=== PATIENT | female | born 1935 | race Caucasian/White ===

== ENCOUNTER 2023-10-11 12:10 | Emergency (ER) | payer MEDICARE, OTHER, SELFPAY ==
[2023-10-11 12:31] VITALS: BP 114/74
[2023-10-11 12:46] VITALS: BP 127/55
[2023-10-11] MEDS: MORPHINE SULFATE 2 MG IV (13:35)
[2023-10-11] MEDS: TYLENOL 650 MG PO (13:35)
[2023-10-11 14:00] VITALS: BP 122/53
[2023-10-11 14:01] LABS: % Basophils 0.3 % (0-2); % Immature Granulocytes 1.2 % (0-0.5); % Lymphocytes 4.9 % (20.5-51.1); % Neutrophils 86.6 % (42.2-75.2); Absolute Immature Granulocytes 0.1 10^3/uL (0-0.05); Absolute Lymphocytes 0.5 10^3/uL (1.2-3.4); Absolute Monocytes 0.8 10^3/uL (0.1-0.6); Absolute Neutrophils 9.3 10^3/uL (1.4-6.5); Hematocrit 29.7 % (37.0-47.0); Hemoglobin 10.5 g/dL (12.0-16.0); Mean Corp Hgb Conc. 35.4 g/dL (33.0-37.0); Mean Corpuscular Hgb 31.9 pg (27.0-31.0); Mean Corpuscular Volume 90.3 fL (81.0-99.0); Mean Platelet Volume 11.2 fL (7.4-10.4); Nucleated Red Blood Cells % 0 %; Platelet Count 142 10^3/uL (130-400); Red Blood Cell Count 3.29 10^6/uL (4.20-5.40); Red Cell Dist. Width 13.5 % (11.5-14.5); White Blood Cell Count 10.7 10^3/uL (4.8-10.8)
[2023-10-11 14:12] LABS: COVID-19 Antigen Negative (Negative)
[2023-10-11 14:13] LABS: INR 1.01; PT 13.5 Sec (11.4-14.6)
[2023-10-11 14:14] LABS: APTT 23.5 Sec (23.4-35.0)
[2023-10-11 14:15] LABS: ALT (SGPT) 24 U/L (0-35); AST (SGOT) 30 U/L (14-36); Albumin 4.1 g/dl (3.5-5.0); Alkaline Phosphatase 65 U/L (38-126); Blood Urea Nitrogen 25 mg/dl (7-17); Calcium 8.5 mg/dl (8.4-10.2); Carbon Dioxide 26 mmol/L (22-30); Chloride 100 mmol/L (98-107); Creatine Phosphokinase 103 U/L (30-135); Glucose 124 mg/dl (70-99); Potassium 4.1 mmol/L (3.5-5.1); Sodium 130 mmol/L (135-145); Total Bilirubin 0.7 mg/dl (0.2-1.3); Total Protein 6.6 g/dl (6.3-8.2); eGFR > 60.00
[2023-10-11 14:24] LABS: Troponin I < 0.012 ng/ml
[2023-10-11 15:00] VITALS: BP 118/48
--- NOTE | 2023-10-11 15:23 | ED.GENMED ---
History of Present Illness
<Fawn Jimenez PA-C - Last Filed: 10/13/23 07:57>
General
Chief Complaint: Fall
Source: patient
Exam Limitations: none
Time Seen by Provider: 10/11/23 12:35
Nursing documentation reviewed up to this point in time: agreed with
Travel History
Have you had any contact with someone who has COVID-19?: No
Do you have any symptoms of coronavirus? Fever > 100 degrees, chills, cough, shortness of breath, sore throat, loss of taste or smell, muscle aches, or headache?: No
History of Present Illness
History of Present Illness:
pt is a 88 y/o F with h/o htn, hld, asthma, tachycardia previously
here with fall today when she was trying to get back into her high bed
pt says she has an antique bed and uses a step stool to get up into the bed. she happened to get down out of bed and then felt lightheaded so she walked around to the step stool and then just tripped she thinks and fell and hit her right cheek on a
marble countertop and then fell onto her chest/abdomen
she has pain in her right cheek, sternum with deep breathing an dabdomen
she had chills last night but was unaware she had a fever
no cough, cold sypmtoms, uti sxs, vomiting, diarrhea.
no thinners
does recall hitting her head
knows she didn't pass out
was on the ground for about 1 hour before daughter came in to help her up.
has pain with deep breathing.
Past History
<Fawn Jimenez PA-C - Last Filed: 10/13/23 07:57>
Past History
ED Past Medical History: HTN, Hypercholesterolemia and Hypothyroidism
Social History
Tobacco: Non-smoker
Alcohol: None
Drug: None
Personal:
Living: with family
Review of Systems
<Fawn Jimenez PA-C - Last Filed: 10/13/23 07:57>
Review of Systems
Allergies reviewed?: Yes
All Other Systems: Not applicable
Phy Exam
<Fawn Jimenez PA-C - Last Filed: 10/13/23 07:57>
Physical Exam
Physical Exam:
GENERAL: Alert , in no apparent distress
HEAD: NCAT
FACE: right cheek contusion/bruisin approx 3 cm
able to open jaw normally
NECK: no midline tenderness, active ROM intact, no paraspinal muscle tenderness;
EYE: pupils equal and reactive, EOMs intact.
ENT: o/p clr, mmm. no hemotympanum
CARDIAC: Regular rate and rhythm, no edema
chest wall: sternal tenderness
LUNGS: Clear breath sounds bilaterally, no acute respiratory distress, no wheezes/rales/rhonchi
ABDOMEN: Soft, without focal tenderness, no r/g, no cvat
+eccyhmosis upper abdomen
NEUROLOGICAL: Alert and oriented, no focal neuro deficits, CN intact, 5/5 strength, sensation intact
SKIN: Warm and dry,
MUSCULOSKELETAL: No edema, well perfused.
PSYCH: Normal and appropriate interaction.
Course
<Fawn Jimenez PA-C - Last Filed: 10/13/23 07:57>
Orders/Labs/Results
Orders:
Orders
10/11/23 13:18
Electrocardiogram (*1) Urgent
Reason for Study: Other
Other Reason for Exam: trauma
CT Chest/abd/pel W Iv Cont Urgent
Reason For Exam: sternal pain from fall
CT Facial Bones W/o Iv Contras Urgent
Comment:
Reason For Exam: right maxillary pain from fall
CT Head W/o Iv Contrast Urgent
Comment:
Reason For Exam: fall hit head
Cardiac Monitoring- Treatment ONCE
EKG- Treatment ONCE
Morphine Sulfate 2 mg IV NOW STA
10/11/23 13:19
CT Cervical Spine W/o Iv Contr Urgent
Comment:
Reason For Exam: fall
10/11/23 13:22
Acetaminophen [Tylenol] 650 mg PO NOW STA
10/11/23 13:30
COVID-19 Antigen Urgent
Source: Nasal Swab
CPK [Creatine Phosphokinase] Urgent
Complete Blood Count/With Diff Urgent
Comprehensive Metabolic Panel Urgent
PTT Urgent
Prothrombin Time Urgent
Troponin I Urgent
Influenza A+B Rapid Molecular Urgent
SARAHI Source: Nasal Swab
Specimen Description:
10/11/23 17:03
Urinalysis Reflex To Culture Urgent
Date Specimen was Collected: 10/11/23
Time Specimen was Collected: 15:19
Abnormal Lab Results
10/11/23
13:30
RBC 3.29 L 10^6/uL
(4.20-5.40)
Hgb 10.5 L g/dL
(12.0-16.0)
Hct 29.7 L %
(37.0-47.0)
MCH 31.9 H pg
(27.0-31.0)
MPV 11.2 H fL
(7.4-10.4)
Abs Immat Gran (auto) 0.1 H 10^3/uL
(0-0.05)
Absolute Neuts (auto) 9.3 H 10^3/uL
(1.4-6.5)
Absolute Lymphs (auto) 0.5 L 10^3/uL
(1.2-3.4)
Absolute Monos (auto) 0.8 H 10^3/uL
(0.1-0.6)
Immature Gran % 1.2 H %
(0-0.5)
Neutrophils % 86.6 H %
(42.2-75.2)
Lymphocytes % 4.9 L %
(20.5-51.1)
Sodium 130 L mmol/L
(135-145)
BUN 25 H mg/dl
(7-17)
Glucose 124 H mg/dl
(70-99)
10/11/23 13:30
10/11/23 13:30
Vital Signs
Temp: 98.1 F
Initial and Last Documented VS:
Initial Vital Signs
Temp Pulse Resp BP Pulse Ox
100.4 F H 70 16 114/74 98
10/11/23 12:31 10/11/23 12:31 10/11/23 12:31 10/11/23 12:31 10/11/23 12:31
Last Documented Vital Signs
Temp Pulse Resp BP Pulse Ox
98.1 F 57 11 118/51 94
10/11/23 16:37 10/11/23 18:32 10/11/23 18:32 10/11/23 18:31 10/11/23 18:32
<Jim Richardson PA-C - Last Filed: 10/11/23 21:00>
Orders/Labs/Results
Orders:
Orders
10/11/23 13:18
Electrocardiogram (*1) Urgent
Reason for Study: Other
Other Reason for Exam: trauma
CT Chest/abd/pel W Iv Cont Urgent
Reason For Exam: sternal pain from fall
CT Facial Bones W/o Iv Contras Urgent
Comment:
Reason For Exam: right maxillary pain from fall
CT Head W/o Iv Contrast Urgent
Comment:
Reason For Exam: fall hit head
Cardiac Monitoring- Treatment ONCE
EKG- Treatment ONCE
Morphine Sulfate 2 mg IV NOW STA
10/11/23 13:19
CT Cervical Spine W/o Iv Contr Urgent
Comment:
Reason For Exam: fall
10/11/23 13:22
Acetaminophen [Tylenol] 650 mg PO NOW STA
10/11/23 13:30
COVID-19 Antigen Urgent
Source: Nasal Swab
CPK [Creatine Phosphokinase] Urgent
Complete Blood Count/With Diff Urgent
Comprehensive Metabolic Panel Urgent
PTT Urgent
Prothrombin Time Urgent
Troponin I Urgent
Influenza A+B Rapid Molecular Urgent
SARAHI Source: Nasal Swab
Specimen Description:
10/11/23 17:03
Urinalysis Reflex To Culture Urgent
Date Specimen was Collected: 10/11/23
Time Specimen was Collected: 15:19
Abnormal Lab Results
10/11/23
13:30
RBC 3.29 L 10^6/uL
(4.20-5.40)
Hgb 10.5 L g/dL
(12.0-16.0)
Hct 29.7 L %
(37.0-47.0)
MCH 31.9 H pg
(27.0-31.0)
MPV 11.2 H fL
(7.4-10.4)
Abs Immat Gran (auto) 0.1 H 10^3/uL
(0-0.05)
Absolute Neuts (auto) 9.3 H 10^3/uL
(1.4-6.5)
Absolute Lymphs (auto) 0.5 L 10^3/uL
(1.2-3.4)
Absolute Monos (auto) 0.8 H 10^3/uL
(0.1-0.6)
Immature Gran % 1.2 H %
(0-0.5)
Neutrophils % 86.6 H %
(42.2-75.2)
Lymphocytes % 4.9 L %
(20.5-51.1)
Sodium 130 L mmol/L
(135-145)
BUN 25 H mg/dl
(7-17)
Glucose 124 H mg/dl
(70-99)
10/11/23 13:30
10/11/23 13:30
Vital Signs
Initial and Last Documented VS:
Initial Vital Signs
Temp Pulse Resp BP Pulse Ox
100.4 F H 70 16 114/74 98
10/11/23 12:31 10/11/23 12:31 10/11/23 12:31 10/11/23 12:31 10/11/23 12:31
Last Documented Vital Signs
Temp Pulse Resp BP Pulse Ox
98.1 F 57 11 118/51 94
10/11/23 16:37 10/11/23 18:32 10/11/23 18:32 10/11/23 18:31 10/11/23 18:32
<Fawn Jimenez PA-C - Last Filed: 10/13/23 07:57>
MDM/Problems Addressed
Differential Diagnosis Includes:
facial fracture, head injury, sternal fracture, dehydration, uti, flu, covid
MDM/Problems Addressed:
88 y/o F with h/o chronic balance issues
says she was trying to get into her bed and thinks she missed the stool and fell hitting her face, head, and chest
she was on the ground 1 hour before being able to get up by her daughter's help
has facial contusion, headache, sternal pain with deep breathing and abd wall bruising
vitals stable but low grade temp
pt had chills last night
no midline neck tenderness
mild sternal tenderness and abd wall tendneress with bruising, right facial ecchymosis but no trismus
trauma w/u neg for fractures/injuries
ekg trop neg
no source for fever identified;
ua pending
if neg, d/c
<Jim Richardson PA-C - Last Filed: 10/11/23 21:00>
*Critical Care Note
Total Time (30-74mins, 75-104mins- exclusive of procedures): Not Applicable
<Jim Richardson PA-C - Last Filed: 10/11/23 21:00>
Update Note
Update Note:
Assumed care of patient from Eula Jimenez PA-C pending urinalysis. Urinalysis is bland, discharged in stable condition
ED Attending Note
<Fawn Jimenez PA-C - Last Filed: 10/13/23 07:57>
-
Portions of this chart may have been created with voice recognition software.� Occasional wrong word or��sound alike� substitutions may have occurred due to the inherent limitations of voice recognition software.
Discharge Plan
Departure
Patient Disposition: Home (Routine Discharge)
Date of Disposition: 10/11/23
Time of Disposition: 18:24
Patient with high blood pressure during this ER visit?: No
Condition: Fair
Discharge Problem:
Fever, Fall, Contusion of face, Abdominal contusion
Instructions: Contusion (DC), Preventing falls in adults
Prescriptions:
No Action
ketoconazole 2 % Shampoo
1 applic TOPICAL .2-3 TIMES PER WEEK
polyethylene glycol 3350 [Miralax] 17 gram Powder In Packet
17 g PO DAILY PRN (Reason: constipation)
atenolol 25 mg Tablet
12.5 mg PO HS
clobetasol 0.05 % Cream
1 applic TOPICAL DIRECTED
Patient Comments:
10/11/2023, pt. states that she applies this medication once a day in the morning for a week and then switches to applying Tacrolimus 0.1% ointment for a week and then swtiches back to this med. and repeats.
cyanocobalamin (vitamin B-12) 1,000 mcg Tablet
1,000 mcg PO DAILY
pentoxifylline 400 mg Tablet Extended Release
400 mg PO DAILY
levothyroxine 75 mcg Tablet
75 mcg PO DAILY
tacrolimus 0.1 % Ointment
1 applic TOPICAL DIRECTED
Patient Comments:
10/11/2023, pt. states that she applies this medication once a day in the morning for a week and then switches to applying Clobetasol 0.05% cream for a week and then swtiches back to this med. and repeats.
nystatin 100,000 unit/gram Cream
1 applic TOPICAL BID
montelukast 10 mg Tablet
10 mg PO HS
magnesium 250 mg Tablet
250 mg PO DAILY
paroxetine HCl 40 mg Tablet
60 mg PO HS
fluticasone propionate 110 mcg/actuation Hfa Aerosol Inhaler
1 puff INHALATION R DAILY
rosuvastatin 5 mg Tablet
5 mg PO HS
Systane (PF) 0.4-0.3 % Dropperette
1 drp BOTH EYES BID
cholecalciferol (vitamin D3) 25 mcg (1,000 unit) Tablet
25 mcg PO DAILY
melatonin 5 mg Tablet
5 mg PO HS
Prebiotic + Probiotic
1 cap PO DAILY
apple cider vinegar
1 tbsp PO NOON
Referrals:
Chantal Sr MD [Family Provider] - Follow up in 2-3 days
Activity Restrictions/Additional Instructions:
YOU HAD NO SIGN OF TRAUMATIC INJURIES FROM YOUR FALL
YOU HAD A SLIGHT FEVER
TAKE TYELNOL EVERY 6 HOURS FOR PAIN/FEVER.
REST, APPLY ICE TO YOUR INJURIES
RETURN FOR ANY COCNERNS
Interventions
Interventions:
*Risk Screen - Suicide Last Done: 10/11/23 13:07
*General Assessment Last Done: 10/11/23 13:07
*Neglect/Abuse Screening Last Done: 10/11/23 13:07
ED- Fall Risk Assessment Last Done: 10/11/23 13:08
*ED COVID-19 Vaccine History Last Done: 10/11/23 13:07
*Nursing Disposition Last Done: 10/11/23 18:58
ED-Musculoskeletal Assessment Last Done: 10/11/23 13:08
ED- Neurological Assessment Last Done: 10/11/23 13:08
ED-Skin Assessment Last Done: 10/11/23 13:08
Discharge Date and Time
Discharge Date/Time: 10/11/23 18:58
[2023-10-11 16:25] VITALS: BP 120/51
[2023-10-11 18:12] LABS: Urine Albumin Negative (Neg - Trace); Urine Bilirubin Negative (Negative); Urine Character Clear (Clear); Urine Color Yellow; Urine Glucose Negative (Negative); Urine Ketone Negative (Negative); Urine Leukocyte Negative (Negative); Urine Nitrite Negative (Negative); Urine Occult Blood Negative (Negative); Urine Urobilinogen Negative (Neg - 1+); Urine pH 6.5 (5.0-9.0)
[2023-10-11 18:31] VITALS: BP 118/51
== END 2023-10-11 18:58 | disposition home or self-care (01) ==
LOC: EMR 12:10
PROVIDERS: Physician Assistant; EMERGENCY PHYSICIAN Emergency Medicine; FAMILY PHYSICIAN Family Medicine
DX: S00.83XA Contusion of other part of head, initial encounter (principal); S30.1XXA Contusion of abdominal wall, initial encounter; R50.9 Fever, unspecified; R07.81 Pleurodynia; W01.190A Fall on same level from slipping, tripping and stumbling with subsequent striking against furniture, initial encounter; Z11.52 Encounter for screening for COVID-19; I10 Essential (primary) hypertension; E78.00 Pure hypercholesterolemia, unspecified; E03.9 Hypothyroidism, unspecified; J45.909 Unspecified asthma, uncomplicated; Z88.6 Allergy status to analgesic agent; Z88.5 Allergy status to narcotic agent; Z88.0 Allergy status to penicillin; Z91.048 Other nonmedicinal substance allergy status
CPT/HCPCS: 99285; 96374; 70450; 70486; 71260; 72125; 74177; 80053; 81003; 82550; 84484; 85025; 85610; 85730; 87502; 87811; 93005; Q9967

== ENCOUNTER → 2023-10-21 14:01 | Outpatient (REF) | payer MEDICARE, OTHER, SELFPAY | LOC: PAVMRI 14:01 | PROVIDERS: ATTENDING PHYSICIAN Surgery Vascular Surgery | DX: I73.9 Peripheral vascular disease, unspecified (principal) | CPT/HCPCS: 72198; 73725; 74185; A9585 ==

== ENCOUNTER → 2023-11-01 08:34 | Outpatient (REF) | payer MEDICARE, OTHER, SELFPAY ==
[2023-11-01 09:11] LABS: % Basophils 0.7 % (0-2); % Eosinophils 1.8 % (0-6); % Immature Granulocytes 0.2 % (0-0.5); % Lymphocytes 41.5 % (20.5-51.1); % Monocytes 12.4 % (1.7-9.3); % Neutrophils 43.4 % (42.2-75.2); Absolute Eosinophils 0.1 10^3/uL (0-0.7); Absolute Lymphocytes 1.8 10^3/uL (1.2-3.4); Absolute Monocytes 0.5 10^3/uL (0.1-0.6); Absolute Neutrophils 1.9 10^3/uL (1.4-6.5); Hematocrit 32.3 % (37.0-47.0); Hemoglobin 10.7 g/dL (12.0-16.0); Mean Corp Hgb Conc. 33.1 g/dL (33.0-37.0); Mean Corpuscular Hgb 31.3 pg (27.0-31.0); Mean Corpuscular Volume 94.4 fL (81.0-99.0); Mean Platelet Volume 10.7 fL (7.4-10.4); Nucleated Red Blood Cells % 0 %; Platelet Count 234 10^3/uL (130-400); Red Blood Cell Count 3.42 10^6/uL (4.20-5.40); Red Cell Dist. Width 13.7 % (11.5-14.5); White Blood Cell Count 4.3 10^3/uL (4.8-10.8)
[2023-11-01 09:38] LABS: ALT (SGPT) 20 U/L (0-35); AST (SGOT) 27 U/L (14-36); Albumin 3.8 g/dl (3.5-5.0); Alkaline Phosphatase 77 U/L (38-126); Blood Urea Nitrogen 30 mg/dl (7-17); Calcium 9.3 mg/dl (8.4-10.2); Carbon Dioxide 27 mmol/L (22-30); Chloride 103 mmol/L (98-107); Glucose 119 mg/dl (70-99); HDL Cholesterol 64 mg/dl; LDL Cholesterol, Calculated 59 mg/dl; Potassium 4.4 mmol/L (3.5-5.1); Sodium 140 mmol/L (135-145); Total Bilirubin 0.5 mg/dl (0.2-1.3); Total Cholesterol 138 mg/dl (50-199); Total Protein 6.6 g/dl (6.3-8.2); Triglyceride 75 mg/dl (10-149); Very Low Density Lipoprotein 15 mg/dl (0-30); eGFR 48.94
[2023-11-01 09:49] LABS: Vitamin D, 25-OH*** 43.6 ng/mL (30-80)
[2023-11-01 10:02] LABS: TSH Reflex To Free T4 1.53 uIU/ml (0.47-4.68)
[2023-11-01 10:22] LABS: Vitamin B12 822 pg/ml (239-931)
[2023-11-01 11:38] LABS: Glycohemoglobin (HgbA1c) 6.3 % (4.0-5.6)
== END ==
LOC: REG 08:34
PROVIDERS: ATTENDING PHYSICIAN Family Medicine
DX: R73.03 Prediabetes (principal); E78.00 Pure hypercholesterolemia, unspecified; E03.9 Hypothyroidism, unspecified; E53.8 Deficiency of other specified B group vitamins; D53.8 Other specified nutritional anemias; Z79.899 Other long term (current) drug therapy; E11.9 Type 2 diabetes mellitus without complications; E55.9 Vitamin D deficiency, unspecified
CPT/HCPCS: 36415; 80053; 80061; 82306; 82607; 83036; 84443; 85025

== ENCOUNTER → 2023-12-27 12:46 | Outpatient (REF) | payer MEDICARE, OTHER, SELFPAY | LOC: RAD 12:46 | PROVIDERS: ATTENDING PHYSICIAN Nurse Practitioner Family; FAMILY PHYSICIAN Family Medicine | DX: R91.1 Solitary pulmonary nodule (principal) | CPT/HCPCS: 71250 ==

== ENCOUNTER → 2023-12-28 12:48 | Outpatient (REF) | payer MEDICARE, OTHER, SELFPAY ==
[2023-12-28 13:32] LABS: Hemoglobin 11.5 g/dL (12.0-16.0); Mean Corp Hgb Conc. 34.8 g/dL (33.0-37.0); Mean Corpuscular Hgb 31.9 pg (27.0-31.0); Mean Corpuscular Volume 91.7 fL (81.0-99.0); Mean Platelet Volume 10.8 fL (7.4-10.4); Platelet Count 178 10^3/uL (130-400); Red Cell Dist. Width 13.5 % (11.5-14.5); White Blood Cell Count 5.4 10^3/uL (4.8-10.8)
[2023-12-28 13:45] LABS: INR 0.97; PT 12.9 Sec (11.4-14.6)
[2023-12-28 13:46] LABS: APTT 29.3 Sec (23.4-35.0)
[2023-12-28 14:20] LABS: Blood Urea Nitrogen 32 mg/dl (7-17); Calcium 9.6 mg/dl (8.4-10.2); Carbon Dioxide 26 mmol/L (22-30); Glucose 99 mg/dl (70-99); eGFR 48.94
[2023-12-28 14:45] LABS: Chloride 101 mmol/L (98-107); Potassium 4.4 mmol/L (3.5-5.1); Sodium 138 mmol/L (135-145)
== END ==
LOC: SDSPAT 12:48
PROVIDERS: ATTENDING PHYSICIAN Internal Medicine Critical Care Medicine; FAMILY PHYSICIAN Family Medicine
DX: R91.1 Solitary pulmonary nodule (principal); Z01.812 Encounter for preprocedural laboratory examination
CPT/HCPCS: 85027; 36415; 80048; 85610; 85730

== ENCOUNTER 2024-01-11 06:12 | Day surgery (SDC) | payer MEDICARE, OTHER, SELFPAY ==
[2024-01-11] VITALS (11 sets, daily range): BP systolic 127–183; BP diastolic 56–77; BMI 26.3
[2024-01-11 07:02] LABS: Glucose - Point of Care 115 mg/dl (70-99)
== END 2024-01-11 12:28 | disposition home or self-care (01) ==
LOC: GI 06:12
PROVIDERS: ATTENDING PHYSICIAN Internal Medicine Critical Care Medicine
DX: J98.4 Other disorders of lung (principal); R91.1 Solitary pulmonary nodule
CPT/HCPCS: 31629; 31627; 31623; 31624; 31654; 31899; 88172; 88173; 88305; 88312; 71045; 76000; 82962; 87015; 87070; 87102; 87116; 87205; 88112; 88333; 88334; 94640; C1887

== ENCOUNTER 2024-03-26 16:49 | Emergency (ER) | payer MEDICARE, OTHER, SELFPAY ==
[2024-03-26 17:04] VITALS: BP 152/74
[2024-03-26 17:25] LABS: % Basophils 0.6 % (0-2); % Eosinophils 2.7 % (0-6); % Immature Granulocytes 0.2 % (0-0.5); % Lymphocytes 28.5 % (20.5-51.1); % Monocytes 11.2 % (1.7-9.3); % Neutrophils 56.8 % (42.2-75.2); Absolute Eosinophils 0.2 10^3/uL (0-0.7); Absolute Lymphocytes 1.9 10^3/uL (1.2-3.4); Absolute Monocytes 0.7 10^3/uL (0.1-0.6); Absolute Neutrophils 3.8 10^3/uL (1.4-6.5); Hematocrit 28.9 % (37.0-47.0); Mean Corp Hgb Conc. 34.6 g/dL (33.0-37.0); Mean Corpuscular Hgb 31.8 pg (27.0-31.0); Mean Platelet Volume 10.6 fL (7.4-10.4); Nucleated Red Blood Cells % 0 %; Platelet Count 210 10^3/uL (130-400); Red Blood Cell Count 3.14 10^6/uL (4.20-5.40); Red Cell Dist. Width 13.9 % (11.5-14.5); White Blood Cell Count 6.6 10^3/uL (4.8-10.8)
[2024-03-26 17:48] LABS: ALT (SGPT) 20 U/L (0-35); AST (SGOT) 32 U/L (14-36); Albumin 4.1 g/dl (3.5-5.0); Alkaline Phosphatase 74 U/L (38-126); Blood Urea Nitrogen 24 mg/dl (7-17); Calcium 9.3 mg/dl (8.4-10.2); Carbon Dioxide 26 mmol/L (22-30); Chloride 103 mmol/L (98-107); Glucose 132 mg/dl (70-99); Potassium 4.9 mmol/L (3.5-5.1); Sodium 137 mmol/L (135-145); Total Bilirubin 0.4 mg/dl (0.2-1.3); Total Protein 6.8 g/dl (6.3-8.2); eGFR > 60.00
--- NOTE | 2024-03-26 19:19 | ED.GENMED ---
History of Present Illness
General
Chief Complaint: Skin Problem
Source: patient
Time Seen by Provider: 03/26/24 19:01
History of Present Illness
History of Present Illness:
89-year-old female reports to the emergency room complaining of pain, redness right leg. 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 Patient has been developing wounds in this leg due to to the
radiation. These wounds have been treated by Dr. Tubbs, the dermatology. He is using 'stem cell injections' to promote healing. Patient has been treated with 'sulfa' for infections of this leg several times over the past few months. Because of
pain and redness she was seen on Tuesday by a partner of Dr. Tubbs. He felt that at that time there is no acute infection. Today she went to the office for her stem cell treatment and a pustule was noted and lanced. She was referred to the
emergency room for further evaluation of possible deep space infection in the calf because she has been having a significant amount of pain in her calf in particular. The location of the wound that was last was on the anterior lateral tibia.
Past History
Past History
ED Past Medical History: HTN, Hypercholesterolemia and Hypothyroidism
Social History
Tobacco: Non-smoker
Alcohol: None
Drug: None
Personal:
Living: with family
Phy Exam
Physical Exam
Physical Exam:
General: Awake, Alert, Oriented X3. No acute distress.
Vitals: unremarkable
Head: Atraumatic
Eyes: Pupils equal, EOMI
Throat: Airway intact, no exudates
Neck: Trachea midline
Lungs: Clear and equal b/l
Heart: Regular rate, no murmurs
Abd: Soft, Nontender, No pulsatile mass
Neuro: Nonfocal
Skin: Warm, dry, no rash
Extremities: pulses equal b/l, right lower extremity shows erythema existing from the upper calf down to the lower calf extending anteriorly to the middle third of the tibia. There is a healed wound in the upper part of the lower leg and a more
open wound with a pustule noted which was evidently I&D.
Course
Orders/Labs/Results
Orders:
Orders
03/26/24 17:14
Complete Blood Count/With Diff Urgent
Comprehensive Metabolic Panel Urgent
03/26/24 19:19
US Periph Venous LOWER Ext RT Urgent
Comment:
Reason For Exam: pain, swelling, eval for dvt or abscess
03/26/24 21:40
Sulfamethox./Trimethoprim Ds [Bactrim Ds 800 mg/160 mg] 1 tablet PO NOW STA
03/26/24 21:43
Acetaminophen [Tylenol] 1,000 mg PO NOW STA
Abnormal Lab Results
03/26/24
17:14
RBC 3.14 L 10^6/uL
(4.20-5.40)
Hgb 10.0 L g/dL
(12.0-16.0)
Hct 28.9 L %
(37.0-47.0)
MCH 31.8 H pg
(27.0-31.0)
MPV 10.6 H fL
(7.4-10.4)
Absolute Monos (auto) 0.7 H 10^3/uL
(0.1-0.6)
Monocytes % 11.2 H %
(1.7-9.3)
BUN 24 H mg/dl
(7-17)
Glucose 132 H mg/dl
(70-99)
03/26/24 17:14
03/26/24 17:14
Vital Signs
Initial and Last Documented VS:
Initial Vital Signs
Temp Pulse Resp BP Pulse Ox
98.0 F 74 16 152/74 98
03/26/24 17:04 03/26/24 17:04 03/26/24 17:04 03/26/24 17:04 03/26/24 17:04
Last Documented Vital Signs
Temp Pulse Resp BP Pulse Ox
97.8 F 78 18 158/88 97
03/26/24 21:57 03/26/24 21:57 03/26/24 21:57 03/26/24 21:57 03/26/24 21:57
MDM/Problems Addressed
Differential Diagnosis Includes:
DVT, abscess, myositis
MDM/Problems Addressed:
Ultrasound was obtained which shows no DVT. There is a subcutaneous abscess noted. I discussed these findings with Dr. Tubbs who knows the patient well and is managing her chronic wounds. He recommended starting patient on Bactrim. He knows
the patient well and did perform a small I&D. He believes this should be sufficient and he will follow-up with the patient on to make sure she is getting better. I am reticent to perform more extensive hide given her severe wound healing
issues.
*Radiology
Radiology exam reviewed: radiology read reviewed
*Pulse Oximetry
Patient hypoxic: no
*Critical Care Note
Total Time (30-74mins, 75-104mins- exclusive of procedures): Not Applicable
Patient Management
Social determinants of health affecting care: Substance abuse
ED Attending Note
-
Portions of this chart may have been created with voice recognition software.� Occasional wrong word or��sound alike� substitutions may have occurred due to the inherent limitations of voice recognition software.
Discharge Plan
Departure
Patient Disposition: Home (Routine Discharge)
Date of Disposition: 03/26/24
Time of Disposition: 21:40
Patient with high blood pressure during this ER visit?: Yes
Condition: Good
Discharge Problem:
Subcutaneous abscess
Instructions: BLOOD PRESSURE, Skin Abscess
Prescriptions:
New
sulfamethoxazole-trimethoprim [Bactrim DS] 800-160 mg tablet
1 tab PO BID Qty: 20 0RF
No Action
ketoconazole 2 % Shampoo
1 applic TOPICAL .2-3 TIMES PER WEEK
polyethylene glycol 3350 [Miralax] 17 gram Powder In Packet
17 g PO DAILY PRN (Reason: constipation)
atenolol 25 mg Tablet
12.5 mg PO HS
clobetasol 0.05 % Cream
1 applic TOPICAL DIRECTED PRN (Reason: apply to right leg)
Patient Comments:
10/11/2023, pt. states that she applies this medication once a day in the morning for a week and then switches to applying Tacrolimus 0.1% ointment for a week and then swtiches back to this med. and repeats.
cyanocobalamin (vitamin B-12) 1,000 mcg Tablet
1,000 mcg PO DAILY
pentoxifylline 400 mg Tablet Extended Release
400 mg PO DAILY
levothyroxine 75 mcg Tablet
75 mcg PO DAILY
tacrolimus 0.1 % Ointment
1 applic TOPICAL DIRECTED PRN (Reason: apply to right leg)
Patient Comments:
10/11/2023, pt. states that she applies this medication once a day in the morning for a week and then switches to applying Clobetasol 0.05% cream for a week and then swtiches back to this med. and repeats.
nystatin 100,000 unit/gram Cream
1 applic TOPICAL BID PRN (Reason: rash)
montelukast 10 mg Tablet
10 mg PO HS
magnesium 250 mg Tablet
250 mg PO DAILY
paroxetine HCl 40 mg Tablet
60 mg PO HS
fluticasone propionate 110 mcg/actuation Hfa Aerosol Inhaler
1 puff INHALATION R DAILY
rosuvastatin 5 mg Tablet
5 mg PO DAILY
Systane (PF) 0.4-0.3 % Dropperette
1 drp BOTH EYES BID PRN (Reason: dry eyes)
cholecalciferol (vitamin D3) 25 mcg (1,000 unit) Tablet
25 mcg PO DAILY
melatonin 5 mg Tablet
5 mg PO HS
Prebiotic + Probiotic
1 cap PO DAILY
apple cider vinegar
1 tbsp PO NOON
Referrals:
Marcello Tubbs MD [Consulting Staff] -
Activity Restrictions/Additional Instructions:
Return to the ER if you develop fever, redness spreads rapidly. Follow up with Dr. Tubbs
Interventions
Interventions:
*Risk Screen - Suicide Last Done: 03/26/24 19:50
*General Assessment Last Done: 03/26/24 19:50
*Neglect/Abuse Screening Last Done: 03/26/24 19:50
ED- Fall Risk Assessment Last Done: 03/26/24 19:50
*Nursing Disposition Last Done: 03/26/24 21:58
ED-Skin Assessment Last Done: 03/26/24 19:50
Discharge Date and Time
Discharge Date/Time: 03/26/24 21:59
Print Language: UPPER SORBIAN
[2024-03-26 20:09] VITALS: BP 169/89
[2024-03-26] MEDS: BACTRIM DS 800 MG/160 MG 1 TABLET PO (21:43)
[2024-03-26] MEDS: TYLENOL 1000 MG PO (21:44)
[2024-03-26 21:57] VITALS: BP 158/88
== END 2024-03-26 21:59 | disposition home or self-care (01) ==
LOC: EMR 16:49
PROVIDERS: Emergency Medicine; EMERGENCY PHYSICIAN Emergency Medicine; FAMILY PHYSICIAN Family Medicine
DX: L02.415 Cutaneous abscess of right lower limb (principal); M79.604 Pain in right leg; I10 Essential (primary) hypertension; E78.00 Pure hypercholesterolemia, unspecified; E03.9 Hypothyroidism, unspecified; Z85.830 Personal history of malignant neoplasm of bone; Z92.3 Personal history of irradiation; Z88.6 Allergy status to analgesic agent; Z88.5 Allergy status to narcotic agent; Z88.0 Allergy status to penicillin; Z91.048 Other nonmedicinal substance allergy status
CPT/HCPCS: 99284; 80053; 85025; 93971

== ENCOUNTER → 2024-05-02 09:44 | Outpatient (REF) | payer MEDICARE, OTHER, SELFPAY ==
[2024-05-02 10:54] LABS: % Basophils 1.2 % (0-2); % Eosinophils 3.6 % (0-6); % Immature Granulocytes 0.4 % (0-0.5); % Lymphocytes 31.2 % (20.5-51.1); % Monocytes 10.5 % (1.7-9.3); % Neutrophils 53.1 % (42.2-75.2); Absolute Basophils 0.1 10^3/uL (0-0.2); Absolute Eosinophils 0.2 10^3/uL (0-0.7); Absolute Lymphocytes 1.6 10^3/uL (1.2-3.4); Absolute Monocytes 0.5 10^3/uL (0.1-0.6); Absolute Neutrophils 2.7 10^3/uL (1.4-6.5); Hematocrit 30.7 % (37.0-47.0); Hemoglobin 10.3 g/dL (12.0-16.0); Mean Corp Hgb Conc. 33.6 g/dL (33.0-37.0); Mean Corpuscular Hgb 30.7 pg (27.0-31.0); Mean Corpuscular Volume 91.4 fL (81.0-99.0); Mean Platelet Volume 10.9 fL (7.4-10.4); Nucleated Red Blood Cells % 0 %; Platelet Count 219 10^3/uL (130-400); Red Blood Cell Count 3.36 10^6/uL (4.20-5.40); Red Cell Dist. Width 14.1 % (11.5-14.5); White Blood Cell Count 5.1 10^3/uL (4.8-10.8)
[2024-05-02 11:46] LABS: ALT (SGPT) 22 U/L (0-35); AST (SGOT) 31 U/L (14-36); Albumin 4.3 g/dl (3.5-5.0); Alkaline Phosphatase 75 U/L (38-126); Blood Urea Nitrogen 29 mg/dl (7-17); Calcium 9.5 mg/dl (8.4-10.2); Carbon Dioxide 29 mmol/L (22-30); Chloride 106 mmol/L (98-107); Glucose 110 mg/dl (70-99); HDL Cholesterol 75 mg/dl; LDL Cholesterol, Calculated 78 mg/dl; Potassium 4.9 mmol/L (3.5-5.1); Sodium 140 mmol/L (135-145); Total Bilirubin 0.5 mg/dl (0.2-1.3); Total Cholesterol 167 mg/dl (50-199); Triglyceride 70 mg/dl (10-149); Very Low Density Lipoprotein 14 mg/dl (0-30); eGFR 48.63
[2024-05-02 12:18] LABS: TSH 3.05 uIU/ml (0.47-4.68)
[2024-05-02 12:25] LABS: Glycohemoglobin (HgbA1c) 5.8 % (4.0-5.6)
== END ==
LOC: REG 09:44
PROVIDERS: ATTENDING PHYSICIAN Family Medicine
DX: E78.00 Pure hypercholesterolemia, unspecified (principal); D63.8 Anemia in other chronic diseases classified elsewhere; E03.9 Hypothyroidism, unspecified; R73.01 Impaired fasting glucose
CPT/HCPCS: 36415; 80053; 80061; 83036; 84443; 85025

== ENCOUNTER → 2024-06-12 14:26 | Outpatient (REF) | payer MEDICARE, OTHER, SELFPAY | LOC: RAD 14:26 | PROVIDERS: ATTENDING PHYSICIAN Internal Medicine Critical Care Medicine; FAMILY PHYSICIAN Family Medicine | DX: R91.1 Solitary pulmonary nodule (principal) | CPT/HCPCS: 71250 ==

== ENCOUNTER → 2024-10-02 08:28 | Outpatient (REF) | payer MEDICARE, OTHER, SELFPAY ==
[2024-10-02 10:09] LABS: % Basophils 1.1 % (0-2); % Eosinophils 2.2 % (0-6); % Immature Granulocytes 0.4 % (0-0.5); % Lymphocytes 33.3 % (20.5-51.1); % Monocytes 9.9 % (1.7-9.3); % Neutrophils 53.1 % (42.2-75.2); Absolute Basophils 0.1 10^3/uL (0-0.2); Absolute Eosinophils 0.1 10^3/uL (0-0.7); Absolute Lymphocytes 1.8 10^3/uL (1.2-3.4); Absolute Monocytes 0.5 10^3/uL (0.1-0.6); Absolute Neutrophils 2.9 10^3/uL (1.4-6.5); Hematocrit 33.6 % (37.0-47.0); Hemoglobin 11.4 g/dL (12.0-16.0); Mean Corp Hgb Conc. 33.9 g/dL (33.0-37.0); Mean Corpuscular Hgb 30.5 pg (27.0-31.0); Mean Corpuscular Volume 89.8 fL (81.0-99.0); Mean Platelet Volume 11.1 fL (7.4-10.4); Nucleated Red Blood Cells % 0 %; Platelet Count 203 10^3/uL (130-400); Red Blood Cell Count 3.74 10^6/uL (4.20-5.40); Red Cell Dist. Width 13.9 % (11.5-14.5); White Blood Cell Count 5.4 10^3/uL (4.8-10.8)
[2024-10-02 10:46] LABS: ALT (SGPT) 21 U/L (0-35); AST (SGOT) 27 U/L (14-36); Albumin 4.4 g/dl (3.5-5.0); Alkaline Phosphatase 67 U/L (38-126); Blood Urea Nitrogen 28 mg/dl (7-17); Carbon Dioxide 28 mmol/L (22-30); Chloride 103 mmol/L (98-107); Glucose 108 mg/dl (70-99); HDL Cholesterol 68 mg/dl; Iron 106 ug/dl (37-170); LDL Cholesterol, Calculated 81 mg/dl; Potassium 4.7 mmol/L (3.5-5.1); Sodium 140 mmol/L (135-145); Total Bilirubin 0.4 mg/dl (0.2-1.3); Total Cholesterol 170 mg/dl (50-199); Total Protein 7.1 g/dl (6.3-8.2); Triglyceride 105 mg/dl (10-149); Very Low Density Lipoprotein 21 mg/dl (0-30); eGFR 54.53
[2024-10-02 11:16] LABS: TSH 5.43 uIU/ml (0.47-4.68)
== END ==
LOC: REG 08:28
PROVIDERS: ATTENDING PHYSICIAN Family Medicine
DX: E78.00 Pure hypercholesterolemia, unspecified (principal); E03.9 Hypothyroidism, unspecified; D63.8 Anemia in other chronic diseases classified elsewhere
CPT/HCPCS: 36415; 80053; 80061; 82728; 83540; 84443; 85025

== ENCOUNTER → 2024-11-14 13:52 | Outpatient (REF) | payer MEDICARE, OTHER, SELFPAY | LOC: RAD 13:52 | PROVIDERS: ATTENDING PHYSICIAN Surgery Vascular Surgery; FAMILY PHYSICIAN Family Medicine | DX: I73.9 Peripheral vascular disease, unspecified (principal) | CPT/HCPCS: 93922; 93925 ==

== ENCOUNTER → 2024-11-28 15:50 | Outpatient (REF) | payer MEDICARE, OTHER, SELFPAY ==
[2024-11-28 17:18] LABS: TSH 0.52 uIU/ml (0.47-4.68)
== END ==
LOC: REG 15:50
PROVIDERS: ATTENDING PHYSICIAN Family Medicine
DX: E03.9 Hypothyroidism, unspecified (principal)
CPT/HCPCS: 36415; 84443

== ENCOUNTER → 2025-01-30 10:15 | Outpatient (REF) | payer MEDICARE, OTHER, SELFPAY ==
[2025-01-30 11:20] LABS: Glycohemoglobin (HgbA1c) 6.1 % (4.0-5.6)
[2025-01-30 11:49] LABS: ALT (SGPT) 21 U/L (0-35); AST (SGOT) 25 U/L (14-36); Albumin 4.4 g/dl (3.5-5.0); Alkaline Phosphatase 53 U/L (38-126); Blood Urea Nitrogen 29 mg/dl (7-17); Calcium 9.6 mg/dl (8.4-10.2); Carbon Dioxide 27 mmol/L (22-30); Chloride 108 mmol/L (98-107); Glucose 113 mg/dl (70-99); HDL Cholesterol 66 mg/dl; LDL Cholesterol, Calculated 51 mg/dl; Potassium 5.1 mmol/L (3.5-5.1); Sodium 143 mmol/L (135-145); Total Bilirubin 0.5 mg/dl (0.2-1.3); Total Cholesterol 129 mg/dl (50-199); Total Protein 7.2 g/dl (6.3-8.2); Triglyceride 62 mg/dl (10-149); Very Low Density Lipoprotein 12 mg/dl (0-30); eGFR 54.53
[2025-01-30 12:05] LABS: TSH 0.77 uIU/ml (0.47-4.68)
[2025-01-30 12:10] LABS: % Eosinophils 3.8 % (0-6); % Immature Granulocytes 0.6 % (0-0.5); % Monocytes 11.7 % (1.7-9.3); % Neutrophils 53.9 % (42.2-75.2); Absolute Basophils 0.1 10^3/uL (0-0.2); Absolute Eosinophils 0.2 10^3/uL (0-0.7); Absolute Lymphocytes 1.4 10^3/uL (1.2-3.4); Absolute Monocytes 0.6 10^3/uL (0.1-0.6); Absolute Neutrophils 2.7 10^3/uL (1.4-6.5); Hematocrit 33.3 % (37.0-47.0); Hemoglobin 11.2 g/dL (12.0-16.0); Mean Corp Hgb Conc. 33.6 g/dL (33.0-37.0); Mean Corpuscular Hgb 30.9 pg (27.0-31.0); Mean Corpuscular Volume 91.7 fL (81.0-99.0); Mean Platelet Volume 11.3 fL (7.4-10.4); Nucleated Red Blood Cells % 0 %; Platelet Count 183 10^3/uL (130-400); Red Blood Cell Count 3.63 10^6/uL (4.20-5.40); Red Cell Dist. Width 13.2 % (11.5-14.5)
== END ==
LOC: REG 10:15
PROVIDERS: ATTENDING PHYSICIAN Family Medicine
DX: E03.9 Hypothyroidism, unspecified (principal); E78.00 Pure hypercholesterolemia, unspecified; D63.8 Anemia in other chronic diseases classified elsewhere; R73.01 Impaired fasting glucose
CPT/HCPCS: 36415; 80053; 80061; 83036; 84443; 85025

== ENCOUNTER → 2025-03-27 09:39 | Outpatient (REF) | payer MEDICARE, OTHER, SELFPAY | LOC: WDC 09:39 | PROVIDERS: ATTENDING PHYSICIAN Family Medicine | DX: N63.22 Unspecified lump in the left breast, upper inner quadrant (principal) | CPT/HCPCS: 76642; 77062; 77066 ==

== ENCOUNTER 2025-03-31 11:55 | Emergency (ER) | payer MEDICARE, OTHER, SELFPAY ==
[2025-03-31 11:58] VITALS: BP 171/67
--- NOTE | 2025-03-31 14:26 | ED.GENMED ---
History of Present Illness
General
Chief Complaint: DVT/Possible Blood Clot
Source: patient and family
Time Seen by Provider: 03/31/25 14:08
History of Present Illness
History of Present Illness:
Note:
CHIEF COMPLAINT(S)
Pain and redness in the right lower extremity following melanoma treatment.
HISTORY OF PRESENT ILLNESS
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 Approximately seven weeks ago, she began using a topical cream as part of her melanoma treatment, which has caused significant
pain. She reports a sharp pain and describes an area of redness on her leg, particularly where the cream has been applied. 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 Previous treatments included skin
grafts, hyperbaric chambers, and various surgical interventions related to a surgery performed in the .
The patient stated the redness and pain began after starting the cream, and despite some improvement, she continues to experience discomfort. She has been under the care of a fur dyer, Dr. Tubbs, and contacted him recently due to concerns
about a blood clot, which was ruled out by ultrasound.
Additionally, the patient reported chills localized to her leg but denied systemic fevers. Her medication regimen has been limited to the fur dyer-prescribed cream, and she has been advised to keep the area moisturized with Vaseline, avoiding
sun exposure.
ADDITIONAL HISTORY OBTAINED FROM SOURCES OTHER THAN THE PATIENT
Per the patients daughter, there is no fever, though chills have been observed in the patients leg. The daughter also indicated the presence of redness and confirmed the ongoing treatment with the cream.
CHRONIC MEDICAL CONDITIONS SIGNIFICANTLY AFFECTING CARE
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
REVIEW OF SYSTEMS
- Skin: Persistent redness and pain in the right lower extremity.
- General: Denies systemic fevers.
PHYSICAL EXAM
General: Alert, no acute distress.
Skin: Warm, dry. Extensive diffuse erythema surrounding the treated area on the anterior portillo of the right lower extremity with no necrosis or drainage.
Head: Normocephalic, atraumatic.
Neck: Supple, trachea midline.
Eye, Ear, Nose, Mouth, and Throat: Oral mucosa moist.
Cardiovascular: Normal peripheral perfusion, No edema.
Respiratory: Respirations are non-labored.
Gastrointestinal : Abdomen nondistended
Back: Normal range of motion, Normal alignment.
Musculoskeletal: Normal range of motion, normal strength.
Neurological: Alert and oriented to person, place, time, and situation, No focal neurological deficit observed.
Psychiatric: Cooperative, appropriate mood & affect.
PLAN
- Continue current topical treatment as prescribed, allowing it to conclude before reintroducing steroid cream.
- Maintain moisturization of the area with Vaseline, avoiding sun exposure.
- Encourage physical activity with periods of elevating the feet when seated.
- Follow-up with fur dyer, Dr. Tubbs, as scheduled.
DIFFERENTIAL DIAGNOSIS
The Differential Diagnosis includes, in no particular order and is not limited to:
1. Contact Dermatitis
2. Melanoma (specific to the ongoing case)
3. Venous Stasis Dermatitis
4. Cellulitis
5. Lymphedema
6. Psoriasis
7. Irritant Dermatitis
8. Minor Cutaneous Infection
9. Allergic Reaction
10. Peripheral Vascular Disease
Disposition:
SUMMARY OF ENCOUNTER
The patient is an 89-year-old female presenting with leg and calf pain associated with significant redness on the right lower extremity. The patient reports the symptoms began following the use of a topical treatment for melanoma on her left leg.
This topical cream, prescribed by her fur dyer, is known to cause irritation, and the patient has been experiencing this pain since beginning the treatment. Surgical interventions were not a viable option due to prior skin integrity issues,
inclusive of surgeries and skin grafts. A recent ultrasound ruled out deep vein thrombosis (DVT). The redness is considered to be a dermatitis resulting from the cream, and it has shown some improvement per family report. The patient does not
display symptoms indicative of cellulitis.
ASSESSMENT
The clinical presentation is suggestive of irritant dermatitis due to the topical melanoma treatment.
PLAN
- Continue current prescribed topical treatment until completion as initial symptoms are showing improvement.
- Ensure regular moisturization of the affected area using Vaseline.
- Avoid sun exposure to minimize further skin irritation.
- Monitor for any progression of symptoms, such as increased redness or pain, to rule out any other underlying complications.
MEDICAL DECISION MAKING
Chronic conditions affecting care: Melanoma, complications from previous surgeries including skin grafts and radiation ulcers.
- Data:
Category 1
External records reviewed, specifically an ultrasound indicating no DVT.
Category 2
Clinical information obtained from an independent historian, specifically the patients family member confirming symptom improvement.
-Risk:
Management includes topical prescription drug therapy, which is being monitored for irritation as a known side effect.
DIAGNOSIS
- Irritant Contact Dermatitis (L23.9)
- Presence of melanoma (C43.7)
Past History
Past History
ED Past Medical History: HTN, Hypercholesterolemia and Hypothyroidism
Social History
Tobacco: Non-smoker
Alcohol: None
Drug: None
Personal:
Living: with family
Phy Exam
Physical Exam
Physical Exam:
.
Course
Orders/Labs/Results
Orders:
Orders
03/31/25 12:01
US Periph Venous LOWER Ext RT Urgent
Comment:
Reason For Exam: pain, swelling
Vital Signs
Initial and Last Documented VS:
Initial Vital Signs
Temp Pulse Resp BP Pulse Ox
97.4 F 66 18 171/67 97
03/31/25 11:58 03/31/25 11:58 03/31/25 11:58 03/31/25 11:58 03/31/25 11:58
Last Documented Vital Signs
Temp Pulse Resp BP Pulse Ox
98 F 64 16 188/64 97
03/31/25 14:30 03/31/25 14:30 03/31/25 14:30 03/31/25 14:30 03/31/25 14:32
*Pulse Oximetry
SaO2: 97
Oxygen Mode of Delivery: Room air
Patient hypoxic: no
*Critical Care Note
Total Time (30-74mins, 75-104mins- exclusive of procedures): Not Applicable
ED Attending Note
-
Portions of this chart may have been created with voice recognition software.� Occasional wrong word or��sound alike� substitutions may have occurred due to the inherent limitations of voice recognition software.
Discharge Plan
Departure
Patient Disposition: Home (Routine Discharge)
Date of Disposition: 03/31/25
Time of Disposition: 14:26
Patient with high blood pressure during this ER visit?: Yes
Discharge Problem:
Dermatitis
Instructions: Contact dermatitis, BLOOD PRESSURE
Prescriptions:
No Action
ketoconazole 2 % Shampoo
1 applic TOPICAL .2-3 TIMES PER WEEK
polyethylene glycol 3350 [Miralax] 17 gram Powder In Packet
17 g PO DAILY PRN (Reason: constipation)
atenolol 25 mg Tablet
12.5 mg PO HS
clobetasol 0.05 % Cream
1 applic TOPICAL DIRECTED PRN (Reason: apply to right leg)
Patient Comments:
10/11/2023, pt. states that she applies this medication once a day in the morning for a week and then switches to applying Tacrolimus 0.1% ointment for a week and then swtiches back to this med. and repeats.
cyanocobalamin (vitamin B-12) 1,000 mcg Tablet
1,000 mcg PO DAILY
pentoxifylline 400 mg Tablet Extended Release
400 mg PO DAILY
levothyroxine 75 mcg Tablet
75 mcg PO DAILY
tacrolimus 0.1 % Ointment
1 applic TOPICAL DIRECTED PRN (Reason: apply to right leg)
Patient Comments:
10/11/2023, pt. states that she applies this medication once a day in the morning for a week and then switches to applying Clobetasol 0.05% cream for a week and then swtiches back to this med. and repeats.
nystatin 100,000 unit/gram Cream
1 applic TOPICAL BID PRN (Reason: rash)
montelukast 10 mg Tablet
10 mg PO HS
magnesium 250 mg Tablet
250 mg PO DAILY
paroxetine HCl 40 mg Tablet
60 mg PO HS
fluticasone propionate 110 mcg/actuation Hfa Aerosol Inhaler
1 puff INHALATION R DAILY
rosuvastatin 5 mg Tablet
5 mg PO DAILY
Systane (PF) 0.4-0.3 % Dropperette
1 drp BOTH EYES BID PRN (Reason: dry eyes)
cholecalciferol (vitamin D3) 25 mcg (1,000 unit) Tablet
25 mcg PO DAILY
melatonin 5 mg Tablet
5 mg PO HS
Prebiotic + Probiotic
1 cap PO DAILY
apple cider vinegar
1 tbsp PO NOON
sulfamethoxazole-trimethoprim [Bactrim DS] 800-160 mg tablet
1 tab PO BID Qty: 20 0RF
Referrals:
Chantal Sr MD [Family Provider, Family Practice]
Activity Restrictions/Additional Instructions:
Please follow-up with dermatology as planned. Continue moisturizing ointment such as Vaseline. Return immediately for fevers, worsening redness, worsening pain or any other concerns.
Your blood pressure was elevated while in the Emergency Department, please have your doctor re-evaluate it in the next 48 hours as untreated hypertension may lead to serious complications.
Interventions
Interventions:
*Risk Screen - Suicide Last Done: 03/31/25 11:58
*General Assessment Last Done: 03/31/25 11:58
*ED COVID-19 Vaccine History Last Done: 03/31/25 11:58
*Nursing Disposition Last Done: 03/31/25 15:00
ED- Cardiac Assessment Last Done: 03/31/25 14:58
ED- Pulmonary Assessment Last Done: 03/31/25 14:58
ED-Peripheral Vascular Assessment Last Done: 03/31/25 14:58
ED-Skin Assessment Last Done: 03/31/25 14:58
Discharge Date and Time
Discharge Date/Time: 03/31/25 15:01
Print Language: SLOVAK
[2025-03-31 14:30] VITALS: BP 188/64
== END 2025-03-31 15:01 | disposition home or self-care (01) ==
LOC: EMR 11:55
PROVIDERS: EMERGENCY PHYSICIAN Emergency Medicine; FAMILY PHYSICIAN Family Medicine
DX: L24.9 Irritant contact dermatitis, unspecified cause (principal); C43.71 Malignant melanoma of right lower limb, including hip; I10 Essential (primary) hypertension; E03.9 Hypothyroidism, unspecified; E78.00 Pure hypercholesterolemia, unspecified
CPT/HCPCS: 99284; 93971

== ENCOUNTER → 2025-04-05 08:10 | Outpatient (REF) | payer MEDICARE, OTHER, SELFPAY ==
--- NOTE | 2025-04-05 14:38 | OID.BR.INTR ---
[facility] Breast Navigator - Initial
- -
Date of Contact: 04/05/25
Met with patient. Patient given written information on navigator service available at [facility]. Will follow up as needed per protocol.
== END ==
LOC: WDC 08:10
PROVIDERS: ATTENDING PHYSICIAN Family Medicine
DX: N63.22 Unspecified lump in the left breast, upper inner quadrant (principal)
CPT/HCPCS: 19083; 88305

== ENCOUNTER 2025-05-02 17:52 | Inpatient (IN) | payer MEDICARE, OTHER, SELFPAY ==
[2025-05-02] VITALS (7 sets, daily range): BP systolic 137–192; BP diastolic 57–86; BMI 27.4
--- NOTE | 2025-05-02 13:29 | ED.GENMED ---
Addendum entered and electronically signed by LEE Frey 05/02/25 16:38:
[id number]:Called to patient's room. Patient recently had vancomycin started and now has burning in her scalp chest arms and back. No visible rash lungs are clear no shortness of breath.
Will hold vancomycin and then attempt to restart at a lower infusion rate will also give a dose of Benadryl.. Patient also complains of a lot of right lower extremity pain she is allergic to NSAIDs will give a small dose of morphine
Original Note:
History of Present Illness
General
Chief Complaint: Skin Problem
Source: patient
Time Seen by Provider: 05/02/25 13:08
History of Present Illness
History of Present Illness:
Patient is 89-year-old female with pmh of Sarcoma yrs ago presents to the ER for evaluation. She has been seen by dermatology, Dr. Tubbs I am has chronic redness to the right lower extremity however this has worsened. 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 She reports she currently has a dressing covered with stem cells and reports redness has increased since Tuesday 2 days ago. She is currently on Keflex
Past History
Past History
ED Past Medical History: HTN, Hypercholesterolemia and Hypothyroidism
Social History
Tobacco: Non-smoker
Alcohol: None
Drug: None
Personal:
Living: with family
Phy Exam
General Physical Exam
General Presentation: no apparent distress
General age: appears stated age
General Skin: warm and dry
General Habitus: normal
General Mental: alert
General Hydration: appears well hydrated
Neurological Exam
Neurological Exam: alert and oriented x3
Musculoskeletal Exam
Musculoskeletal Exam: full ROM and other (rle with + erythema to right lower leg )
Skin Exam
Skin Exam: normal color and warm/dry
Psychiatric Exam
Psychiatric Exam: normal mood/affect
Course
Orders/Labs/Results
Orders:
Orders
05/02/25 13:51
Complete Blood Count/With Diff Urgent
Comprehensive Metabolic Panel Urgent
Lactic Acid Q4H
Comment: CANCEL 2nd LACTIC ACID IF 1st LACTIC ACID IS LESS THAN 2
Blood Culture Q30M
SARAHI Source: Blood/Venous
Specimen Description:
Blood Culture Q30M
SARAHI Source: Blood/Venous
Specimen Description:
05/02/25 17:45
Lactic Acid Q4H
Comment: CANCEL 2nd LACTIC ACID IF 1st LACTIC ACID IS LESS THAN 2
Abnormal Lab Results
05/02/25
13:51
RBC 3.38 L 10^6/uL
(4.20-5.40)
Hgb 10.3 L g/dL
(12.0-16.0)
Hct 30.4 L %
(37.0-47.0)
Absolute Monos (auto) 0.8 H 10^3/uL
(0.1-0.6)
Monocytes % 10.0 H %
(1.7-9.3)
BUN 25 H mg/dl
(7-17)
05/02/25 13:51
05/02/25 13:51
Vital Signs
Initial and Last Documented VS:
Initial Vital Signs
Temp Pulse Resp BP Pulse Ox
98.3 F 64 20 137/86 98
05/02/25 12:09 05/02/25 12:09 05/02/25 12:09 05/02/25 12:09 05/02/25 12:09
Last Documented Vital Signs
Temp Pulse Resp BP Pulse Ox
98.3 F 64 20 186/68 100
05/02/25 14:38 05/02/25 12:09 05/02/25 12:09 05/02/25 14:00 05/02/25 14:30
MDM/Problems Addressed
Differential Diagnosis Includes:
Not limited to cellulitis
MDM/Problems Addressed:
patient presenting with cellulitis of right lower extremity. Patient recently had squamous cell carcinoma/Mohs surgery of right lower leg. She was seen by her child care teacher, Dr. Tubbs on Tuesday 2 days ago and has had increasing redness and is
on doxycycline. She does complain of chills. She currently has a dressing to be placed to the right lower leg at the site of the squamous cell removal with stem cells. She is afebrile with a normal white count however with increasing redness
despite doxycycline would recommend admission, IV antibiotics ordered.
Chronic conditions affecting care:
History of previous sarcoma to right lower extremity radiation
*Pulse Oximetry
SaO2: 98
Oxygen Mode of Delivery: Room air
Patient hypoxic: no
*Critical Care Note
Total Time (30-74mins, 75-104mins- exclusive of procedures): Not Applicable
ED Attending Note
-
Portions of this chart may have been created with voice recognition software.� Occasional wrong word or��sound alike� substitutions may have occurred due to the inherent limitations of voice recognition software.
Discharge Plan
Departure
Patient Disposition: Admit
Date of Disposition: 05/02/25
Time of Disposition: 15:15
Admit to: Med/Surg
Admit to doctor: hospitalist
Presentation/result/management discussed w/ accepting MD/DO: Hospitalist
Patient with high blood pressure during this ER visit?: Yes
Condition: Fair
Covid-19: Not Applicable
Discharge Problem:
Cellulitis of leg, right
Prescriptions:
No Action
ketoconazole 2 % Shampoo
1 applic TOPICAL .2-3 TIMES PER WEEK
polyethylene glycol 3350 [Miralax] 17 gram Powder In Packet
17 g PO DAILY PRN (Reason: constipation)
atenolol 25 mg Tablet
12.5 mg PO HS
clobetasol 0.05 % Cream
1 applic TOPICAL DIRECTED PRN (Reason: apply to right leg)
Patient Comments:
10/11/2023, pt. states that she applies this medication once a day in the morning for a week and then switches to applying Tacrolimus 0.1% ointment for a week and then swtiches back to this med. and repeats.
cyanocobalamin (vitamin B-12) 1,000 mcg Tablet
1,000 mcg PO DAILY
pentoxifylline 400 mg Tablet Extended Release
400 mg PO DAILY
levothyroxine 75 mcg Tablet
75 mcg PO DAILY
tacrolimus 0.1 % Ointment
1 applic TOPICAL DIRECTED PRN (Reason: apply to right leg)
Patient Comments:
10/11/2023, pt. states that she applies this medication once a day in the morning for a week and then switches to applying Clobetasol 0.05% cream for a week and then swtiches back to this med. and repeats.
nystatin 100,000 unit/gram Cream
1 applic TOPICAL BID PRN (Reason: rash)
montelukast 10 mg Tablet
10 mg PO HS
magnesium 250 mg Tablet
250 mg PO DAILY
paroxetine HCl 40 mg Tablet
60 mg PO HS
fluticasone propionate 110 mcg/actuation Hfa Aerosol Inhaler
1 puff INHALATION R DAILY
rosuvastatin 5 mg Tablet
5 mg PO DAILY
Systane (PF) 0.4-0.3 % Dropperette
1 drp BOTH EYES BID PRN (Reason: dry eyes)
cholecalciferol (vitamin D3) 25 mcg (1,000 unit) Tablet
25 mcg PO DAILY
melatonin 5 mg Tablet
5 mg PO HS
Prebiotic + Probiotic
1 cap PO DAILY
apple cider vinegar
1 tbsp PO NOON
sulfamethoxazole-trimethoprim [Bactrim DS] 800-160 mg tablet
1 tab PO BID Qty: 20 0RF
Referrals:
Chantal Sr MD [Family Provider, Family Practice]
Interventions
Interventions:
*Risk Screen - Suicide Last Done: 05/02/25 12:09
*General Assessment Last Done: 05/02/25 12:09
*Neglect/Abuse Screening Last Done: 05/02/25 12:09
*ED- Fall Risk Assessment Last Done: 05/02/25 14:39
*ED COVID-19 Vaccine History Last Done: 05/02/25 14:39
ED-Skin Assessment Last Done: 05/02/25 14:40
Discharge Date and Time
Print Language: CONGOLESE
[2025-05-02 14:35] LABS: Hematocrit 30.4 % (37.0-47.0); Hemoglobin 10.3 g/dL (12.0-16.0); Mean Corp Hgb Conc. 33.9 g/dL (33.0-37.0); Mean Corpuscular Volume 89.9 fL (81.0-99.0); Nucleated Red Blood Cells % 0 %; Platelet Count 274 10^3/uL (130-400); Red Cell Dist. Width 13.7 % (11.5-14.5)
[2025-05-02 14:52] LABS: ALT (SGPT) 21 U/L (0-35); AST (SGOT) 23 U/L (14-36); Albumin 4.4 g/dl (3.5-5.0); Alkaline Phosphatase 67 U/L (38-126); Blood Urea Nitrogen 25 mg/dl (7-17); Calcium 9.1 mg/dl (8.4-10.2); Carbon Dioxide 26 mmol/L (22-30); Chloride 104 mmol/L (98-107); Estimated Creatinine Clearance 39 ml/min; Glucose 85 mg/dl (70-99); Potassium 4.3 mmol/L (3.5-5.1); Sodium 140 mmol/L (135-145); Total Protein 7.4 g/dl (6.3-8.2); eGFR > 60.00
[2025-05-02] MEDS: VANCOCIN 530 MG IV (16:10)
[2025-05-02] MEDS: BENADRYL 25 MG IV ×3 (16:44→20:17)
--- NOTE | 2025-05-02 16:53 | HPS.HSE ---
Addendum entered and electronically signed by Michelle Maxwell MD 05/02/25 19:46:
This is an addendum to H&P written by Leena Banda on 05/02/2025. �Patient seen and examined independently with PROCESS DEVELOPMENT MANAGER.
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
hyperlipidemia, hypothyroidism, chronic anemia, presenting with erythema, swelling and pain of her right lower extremity after squamous cell cancer removed from lateral aspect of right lower extremity on 04/30. �Received 2 days of doxycycline without
improvement.
Vital signs show blood pressure up to 192/71.
Labs show stable hemoglobin of 10.3.
Patient with cellulitis of right lower extremity after squamous cell cancer removal from the right lower extremity. �Vancomycin. �Wound care consulted.
Original Note:
Family Physician
-
Family Physician: Chantal Sr
Chief Complaint
-
Right lower extremity erythema status post squamous cell cancer removal
History of Present Illness
89-year-old female who had squamous cell cancer removed from her right lower extremity upper lateral aspect on Tuesday 2 days ago by dermatology Dr. Tubbs with stem cell transplant and iodoform packing on top. She reports increased redness over
the past 2 days extending from the upper knee down to the foot while being on oral doxycycline 100 mg twice daily. History of melanoma right mid portillo resolved. The patient has been applying chemo cream for the past 2 manage is now finished. She
also had Right posterior keratosis cryoablation past 2 weeks surrounding skin intact,
She has past medical history of history of sarcoma removal right lower extremity 2 areas status post stem cell transplant and skin graft from right thigh,
HTN, HLD, hypothyroidism, anemia�normocytic
Medical History
Past Medical History
Past Medical History: Reports Other
Additional Past Medical History:
squamous cell cancer removed from her right lower extremity upper lateral aspect 04/30/2025
melanoma right mid portillo resolved February - April 2025 post chemo cream
sarcoma removal right lower extremity 2 areas status post stem cell transplant and skin graft from right thigh
HTN
HLD
hypothyroidism
anemia�normocytic
Past Surgical History: Reports Other
Additional Past Surgical History:
squamous cell cancer removed from her right lower extremity upper lateral aspect 04/30/2025
melanoma right mid portillo resolved February - April 2025 post chemo cream
sarcoma removal right lower extremity 2 areas status post stem cell transplant and skin graft from right thigh
Social History
Tobacco: Non-smoker
Alcohol: None
Drug: None
Personal: Single
Living: Alone
Employment: Retired
Family History
Family History: Not pertinent
Allergies / Home Medications
Allergies reflects when Allergies were last updated in [facility].
Home Medications with original date entered in [facility]
Allergy/Medication List:
Allergies
Allergy/AdvReac Type Severity Reaction Status Date / Time
NSAIDS (Non-Steroidal Allergy Unknown Hives Verified 05/02/25 12:14
Anti-Inflamma (NSAIDS
(Non-Steroidal
Anti-Inflammatory Drug))
codeine (Codeine) Allergy nausea, Verified 05/02/25 12:14
vomiting
naproxen sodium (From Aleve) Allergy Hives Verified 05/02/25 12:14
Penicillins Allergy Rash-30 Verified 05/02/25 12:14
YEARS AGO
pollen extracts Allergy seasonal Verified 05/02/25 12:14
allergies
Home Medications
peg 400-propylene glycol (PF) 0.4 %-0.3 % eye drops in a dropperette (Systane (PF)) 1 drp BOTH EYES BIDPRN PRN dry eyes 10/11/23
acetaminophen 325 mg tablet (Tylenol) 650 mg PO Q6HPRN PRN mild pain 05/02/25
carvedilol 3.125 mg tablet (Coreg) 3.125 mg PO BID 05/02/25
doxycycline hyclate 100 mg capsule 100 mg PO BID 05/02/25
levothyroxine 88 mcg tablet (Synthroid) 88 mcg PO DAILY 05/02/25
paroxetine HCl 20 mg tablet (Paxil) 20 mg PO DAILY 05/02/25
rosuvastatin 10 mg tablet (Crestor) 10 mg PO DAILY 05/02/25
Review of Systems
-
History Source: Patient and Family (Friend at bedside)
A 12 point ROS was completed and negative except as noted: Yes
Constitutional: Reports Chills; Denies Fever
EENT: Denies Sore Throat or Runny Nose
Respiratory: Denies Cough or Trouble Breathing
Cardiac: Denies Chest Pain, Diaphoresis, Palpitations or Syncope
Abdomen/GI: Denies Abdominal Pain, Nausea, Vomiting, Diarrhea or Constipated
: Denies Dysuria, Frequency, Flank Pain, Incontinence or Difficulty Voiding
Musculoskeletal: Reports Other (Circumferential erythema from knee down to foot, right upper lateral leg with excision site of squamous cell carcinoma underlying reported skin graft and outer layer of iodoform packing); Denies Joint Pain
Skin: Denies Itching or Rash
Neurological: Denies Dizzy, Headache or Weakness
Endocrine: Reports No Symptoms
Hematologic/Lymphatic: Reports No Symptoms
Psych: Reports Calm
Physical Exam
Vital Signs
Vital Signs
Temp Pulse Resp BP Pulse Ox
98.3 F 64 20 192/71 99
05/02/25 14:38 05/02/25 12:09 05/02/25 12:09 05/02/25 16:00 05/02/25 16:17
Physical Exam
General: Pain; No Fever or Chills
HEENT: NormoCephalic, Anicteric, Moist mucous membranes, PERRLA, Nitro Conjunctivae and No Ptosis
Respiratory: Clear; No Wheezes, Rales or Rhonchi
Cardiac: S1/S2 and Regular Rhythm; No Murmur, Rub, Gallop or Peripheral Edema
Breast: Deferred by me
GI: Soft, Non Tender, Non Distended, Normal Bowel Sounds and No Hepatosplenomegaly
Rectal: Deferred by Provider
Genito-urinary: Deferred by me
Musculoskeletal: No Clubbing, No Cyanosis and Edema, Right Lower Extremity (Circumferential erythema from knee down to foot, right upper lateral leg with excision site of squamous cell carcinoma underlying reported skin graft and outer layer of
iodoform packing); No Edema, Left Upper Extremity, Edema, Right Upper Extremity or Edema, Left Lower Extremity
Skin: Warm and Dry; No Jaundice
Neuro: AO x 3, No Motor Deficits, Nonfocal/grossly intact, Cranial Nerves Intact and No Sensory Deficits; No Slurred Speech, Facial Droop, Tremors or Sedated
Psych: Calm
Laboratory Results
-
05/02/25 13:51
05/02/25 13:51
Laboratory Results
Lactic Acid Cancelled 05/02/25 17:45
Total Bilirubin 0.2 mg/dl (0.2-1.3) 05/02/25 13:51
AST 23 U/L (14-36) 05/02/25 13:51
ALT 21 U/L (0-35) 05/02/25 13:51
Alkaline Phosphatase 67 U/L (38-126) 05/02/25 13:51
Impression/Plan
-
Impression/plan:
Admit to [facility]
#Cellulitis right lower extremity status post squamous cell removal with stem cell transplant failure outpatient ABX
- Had removal squamous cell by Dr. Tubbs on 04/30/2025 has stem cell transplant she reports under iodoform packing
Has been on oral doxycycline x 2 days
-Patient was started on IV vancomycin in ER had some itching of the scalp and flushing we will restart at
lower dose IV vancomycin at 100 cc/h
-patient was given Benadryl for itching
- As needed Benadryl for itching
- Tylenol scheduled for pain, IV morphine moderate to severe pain has tolerated in past
- Consult wound care
- Follow CBC, CMP
#History of melanoma right mid portillo resolved
Patient has been applying chemo cream for the past 2 manage is now finished
#History of sarcoma removal right lower extremity 2 areas status post stem cell transplant and skin graft from right thigh
#Right posterior keratosis cryoablation past 2 weeks surrounding skin intact
#Chronic normocytic anemia
Hgb 10.3 MCV 89.9 appears baseline
#HTN
BP stable
-Continue Coreg 3.125 mg twice daily
#HLD
-Continue Crestor 10 mg daily
#Hypothyroidism
-Continue Synthroid 88 mcg p.o.
#Depression
Continue Paxil 20 mg daily
DVT prophylaxis
Subcu Lovenox
Full code per patient with friend at bedside
--- NOTE | 2025-05-02 19:15 | PTCARENOTE ---
Pt arrived from ED to floor on stretcher at 18:20. Pt was a one person assist stand pivot to bed. VS taken, pt oriented to room with friend at bedside. No current complaints, plan of care ongoing.
--- NOTE | 2025-05-02 19:30 | PTCARENOTE ---
While assessing patient, vancomycin was running through IV site in left hand, patient began to complain that her forearm was itchy, foreram was red. bendaryl given. patient then began to complain that her scalp was itching and her throat felt
'funny'. Vancomycin stopped, notified COIL WINDER and was at bedside,additional benadryl given as well as decadron and pepcid. RT notified to give evangelist treatment, pulse ox remained 98% on room air. symptoms improved.
--- NOTE | 2025-05-02 19:41 | PHA.VAN.IN ---
Assessment
- Assessment
Renal Function: Appears similar to baseline
AUC Dosing Plan
- Dosing Variables
Dosing Weight (kg): 67.9
Dosing CrCl (ml/min): 39
Vd coefficient (L/kg): 0.7
- Empiric Dosing
Initial / Loading Dose: 1500 MG ~ 1600
Maintenance Regimen: 750 MG IV Q24H rate over 2 hrs 'pt developed hamzah syndrome'
Estimated AUC (mcg*h/mL): 445
Estimated Peak (mcg*h/mL): 26.9
Estimated Trough (mcg/ml): 12
Estimated Half Life (H): 18.8
- Monitoring
No levels ordered at this time: Consider levels in next few days
Pharmacokinetics Vancomycin I
- -
Patient Age: 89
Patient Sex: Female
Vancomycin Day #: 1
Indication: Skin And Soft Tissue
Requesting Provider: Veronika Reilly
Pertinent Antimicrobial Allergies:
PCN rash (30 yrs ago)
Height / Weight:
Height 5 ft 2 in
Actual Weight 67.9 kg
Pertinent Past Medical History: Cellulitis s/p squamous cell CA
- Vital Signs / Lab Results
Temp Pulse Resp BP Pulse Ox
98.3 F 72 16 176/73 98
05/02/25 14:38 05/02/25 18:29 05/02/25 18:29 05/02/25 18:29 05/02/25 18:29
Lab Results - Hematology
05/02/25
13:51
WBC 7.9
Lab Results - Chemistry
05/02/25
13:51
BUN 25 H
Creatinine 0.9
Estimated Creat Clear 39
Albumin 4.4
05/02/25 05/02/25 05/02/25
13:38 13:51 17:45
Lactic Acid Cancelled 0.7 Cancelled
[2025-05-02] MEDS: TYLENOL 650 MG PO ×2 (20:02→23:24)
[2025-05-02] MEDS: COREG 3.125 MG PO (20:02)
[2025-05-02] MEDS: HEPARIN 5000 UNITS SC (20:02)
--- NOTE | 2025-05-02 20:14 | W.PN.UPDATE ---
Update Note
Progress Note Update
Patient started to develop red man syndrome after starting vanco in ER rate was decreased earlier, after the patient transferred to the floor patient started started to have itchy throat associated with sob and wheezing. Patient just received one
dose of Benadryl IV 25mg.
-On assessment patient is wheezing with sob. Patient with puffy red eyes, and some neck redness noted.�
-No lips or tongue swelling noted on the exam. Vital signs including SPO2 within baseline.�
-Vanco D/C
-Symptoms resolved with another dose of IV Benadryl 25mg, one dose of dexamethasone 4mg, and duo neb.
-Patient placed on tele
Discussed with the admitting physician and will start patient on Levaquin.
[2025-05-02] MEDS: DECADRON 4 MG IV (20:19)
[2025-05-02] MEDS: DUONEB 3 ML INH (20:29)
[2025-05-02] MEDS: NSS (PRESERVATIVE FREE) 8 ML IV (20:31)
[2025-05-02] MEDS: PEPCID 20 MG IV (20:31)
[2025-05-02] MEDS: LEVAQUIN 150 IV (22:10)
[2025-05-02 22:19] LABS: COVID-19 Antigen Negative (Negative)
[2025-05-02] MEDS: MORPHINE SULFATE 2 MG IV (23:24)
[2025-05-03] MEDS: TYLENOL PO ×2 (04:33→16:57)
[2025-05-03] MEDS: SYNTHROID 88 MCG PO (06:13)
--- NOTE | 2025-05-03 07:16 | W.PN.HOSP.TC ---
Today's Communication/Plan
-
- continue levofloxacin
- monitor VS, CBC
- f/u CM and PT/OT
Assessment / Plan
Assessment / Plan
In summary 89 yo F p/w erythema and tenderness of right lower extremity most concerning for cellulitis
# Cellulitis right lower extremity
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
- with Dermatology, squamous cell carcinoma was removed on 04/30, received stem cells transplants
- was on doxycyline for 2 days, then presented to the ER for worsening erythema
- ED course started on vancomycin, complicated by adverse reaction, now receiving and tolerate levofloxacin
- pain control: acetaminophen 650mg q4h; morphine sulfate 2mg and 4mg q4hprn
- Wound care consulted
- Follow CBC, CMP
- Plan for eventual transition to PO levofloxacin upon discharge for likely 5-7 day total course
# History of Multiple skin malignancies
- Melanoma right mid portillo
- liposarcoma right lower extremity
- has been managing with chemotherapy cream - now completed, per dermatology
# Chronic normocytic anemia
- Hgb stable at 9.6
- MCV 88.1
# HTN
- BP was elevated overnight to 160s/170s
- Carvedilol 3.125 mg twice daily
# Chronic issues per below
# HLD: Rosuvastatin 10 mg
# Hypothyroidism - levothyroxine 88mcg
# Depression - Paroxetine 20 mg daily
DVT prophylaxis: enoxaparin
Full code
Anticipated Discharge: > 48 hours
Subjective/Interval History
-
Date of Service: May 03, 2025
89 yo F with excision of squamous cell carcinoma on R lower extremity on 04/30 with stem cell transplant/iodoform packing.
Her story starts with a liposarcoma on her right lower extremity > 30 years ago and has been requiring various interventions for skin lesions (1x melanoma, squamous cell cancer) over the years.
Most recently, for a few days after a procedure with Dermatology, she reports increased erythema and pain from knee to foot. She initially was taking doxycycline 100mg PO bid. Upon admission to the ER, she was prescribed vancomycin but developed an
adverse reaction comprising itching and flushing, received diphenhydramine x1, which then progressed to wheezing, red eyes, erythema on neck. Her VS reassuringly within normal limits. The vancomycin was discontinued, and then was administered
another diphenhydramine x1, dexamethasone 4mg, and duoneb.
She was then given levofloxacin and appeared to tolerate this antibiotic well.
This morning, she is doing better. Endorses some chills and pain in RLE, but denies chest pain, dyspnea or new rashes.
PMH: HTN, HLD, hypothyroidism, normocytic anemia
Objective Data
-
Labs:
Laboratory Results
05/03/25
06:00
WBC Pending
Hgb Pending
Hct Pending
Plt Count Pending
Sodium Pending
Potassium Pending
Chloride Pending
Carbon Dioxide Pending
BUN Pending
Creatinine Pending
Glucose Pending
Calcium Pending
Total Bilirubin Pending
AST Pending
ALT Pending
Alkaline Phosphatase Pending
WBC 4.3 from 7.9
Hgb 9.6
Electrolytes largely within normal limits (BUN 26, Cr 0.9)
blood cultures are pending
Vital Signs:
Vital Signs
Temp Pulse Resp BP Pulse Ox
98.3 F 73 18 161/71 95
05/02/25 22:59 05/02/25 22:59 05/02/25 22:59 05/02/25 22:59 05/02/25 22:59
BP 140/70s
I&O
05/02/25 05/03/25 05/04/25
06:59 06:59 06:59
Intake Total 150 / 150
Balance 150 / 150
Review of Systems
-
Constitutional: Reports Chills
EENT: Reports No Symptoms Reported
Respiratory: Reports No Symptoms
Cardiac: Reports No Symptoms
Abdomen/GI: Reports No Symptoms
Genitourinary: Reports No Symptoms
Skin: Reports Other (redness, dryness along right lower extremity)
Neuro: Reports No Symptoms
Physical Exam
-
General: No Apparent Distress
HEENT: Normocephalic and Atraumatic
Respiratory: Clear to Auscultation
Cardiac: Regular Rhythm
GI: Soft
Musculoskeletal: No Edema
Skin: Other (multiple wounds on right lower extremity (upper tibia and posterior knee), one of which has packing. erythema extending from just superior to patella down to ankles, warmth appreciable, some tenderness to palpation)
Neuro: Awake, Alert and Nonfocal/Grossly Intact
Psych: Calm
[2025-05-03 07:48] VITALS: BP 145/60
[2025-05-03 07:54] LABS: Hematocrit 28.1 % (37.0-47.0); Hemoglobin 9.6 g/dL (12.0-16.0); Mean Corp Hgb Conc. 34.2 g/dL (33.0-37.0); Mean Corpuscular Volume 88.1 fL (81.0-99.0); Nucleated Red Blood Cells % 0 %; Platelet Count 250 10^3/uL (130-400); Red Cell Dist. Width 13.6 % (11.5-14.5)
[2025-05-03 08:26] LABS: ALT (SGPT) 18 U/L (0-35); AST (SGOT) 20 U/L (14-36); Albumin 3.7 g/dl (3.5-5.0); Alkaline Phosphatase 61 U/L (38-126); Blood Urea Nitrogen 26 mg/dl (7-17); Calcium 9.1 mg/dl (8.4-10.2); Carbon Dioxide 24 mmol/L (22-30); Chloride 106 mmol/L (98-107); Estimated Creatinine Clearance 39 ml/min; Glucose 157 mg/dl (70-99); Potassium 5.1 mmol/L (3.5-5.1); Sodium 138 mmol/L (135-145); Total Protein 6.4 g/dl (6.3-8.2); eGFR > 60.00
[2025-05-03] MEDS: TYLENOL 650 MG PO ×3 (09:06→20:14)
[2025-05-03] MEDS: PAXIL 20 MG PO (09:06)
[2025-05-03] MEDS: CRESTOR 10 MG PO (09:06)
[2025-05-03] MEDS: HEPARIN 5000 UNITS SC ×2 (09:07→20:14)
[2025-05-03] MEDS: COREG 3.125 MG PO ×2 (09:07→20:13)
--- NOTE | 2025-05-03 09:43 | WOUNDNOTE ---
[facility] RN note: Patient admitted with RLE cellulitis. s/p skin cancer removal 2 weeks and ago with a stem cell graft application on Tuesday by Dr. Tubbs.
See H&P for complete history.
PMH: R posterior lower thigh and RLE skin cancer removal in past. Radiation RLE in 1996 for skin cancer (liposarcoma), PAD RLE (follows vascular), asthma, sleep apnea, TB, fibromyalgia, R foot drop.
Wound Location and type/assessment: Patient admitted with: Dry pink chronic skin area from previous skin cancer. R posterior lower thigh scabbed skin cancer removal site. R lateral upper calf recent skin cancer removal site with balled up iodoform
gauze sutured over stem cell graft. No drainage. Patient and daughter report RLE much improved, less swollen and less red. Skin dry RLE. +Pedal pulses (L palpable, R heard via portable Doppler).
Appetite: Good.
Pressure redistribution devices in place: [employer] Accum[employer]. Patient can turn self in bed and can ambulate.
Plan: Patient explained local care. RLE dry skin cleansed with saline, Vaseline applied to dry skin RLE, Vaseline, adaptic, ABD pad applied to R upper lateral calf stem cell graft site, secured with Kerlix starting from ankle to knee then secured
with R knee high Glenn wrap from foot to knee. Heels off bed with air chair cushion. Instructed patient pressure injury prevention measures.
Will confirm orders with hospitalist (Dr. Robertson or Dr. Barajas) and updated RN Sahra.
Care plan to be updated and will follow as needed. Patient to follow up with Dr. Tubbs and vascular physician.
--- NOTE | 2025-05-03 09:58 | WOUNDNOTE ---
R KNEE/CALF (LATERAL)
[2025-05-03 11:12] VITALS: BP 133/50
[2025-05-03 11:51] VITALS: BP 151/62; PULSE 77
[2025-05-03] MEDS: MORPHINE SULFATE 2 MG IV (13:15)
--- NOTE | 2025-05-03 14:02 | CM ---
Addendum entered by Emily Walker 05/03/25 14:07:
Therapy rec home PT, patient declined
Original Note:
Patient seen bedside, initial assessment completed. Admitted for right lower extremity erythema status post squamous cell cancer removal.
Patient resides w/ her daughter in a 2STH, 2 steps to enter from the outside. Patient is independent w/ the use of a cane. Independent w/ ADLs. Has grab bar, shower chair, and uses CPAP at night. Denies SNF/HC hx. OP PT in the past. Patient states
she is not interested in any therapy.
Address, point of contact and insurance verified
PCP: Chantal Sr
Pharmacy: [facility]
Plan: Home, no needs
[2025-05-03 15:09] VITALS: BP 145/55
[2025-05-03 19:00] VITALS: BP 141/58
[2025-05-04] MEDS: BENADRYL 25 MG IV (00:13)
[2025-05-04] MEDS: TYLENOL 650 MG PO ×5 (00:16→21:30)
--- NOTE | 2025-05-04 00:51 | W.PN.UPDATE ---
Update Note
Progress Note Update
Around midnight, patient developed rash itchy around neck, chest, hands, and scalp. Denies sob. late reaction to vanco ??or new reaction to Levaquin??
-Patient did not received new meds except one dose of Levaquin 05/02 @2200.
-One dose of Benadryl given and will discuss with the morning team.
[2025-05-04 03:23] VITALS: BP 144/87
[2025-05-04] MEDS: TYLENOL PO (04:54)
[2025-05-04] MEDS: SYNTHROID 88 MCG PO (05:07)
[2025-05-04] MEDS: MORPHINE SULFATE 2 MG IV ×2 (05:11→14:21)
--- NOTE | 2025-05-04 07:13 | W.PN.HOSP.TC ---
Today's Communication/Plan
-
- levofloxacin is q48h, continue for now
- monitor for any adverse reactions
- monitor VS, CBC
Assessment / Plan
Assessment / Plan
In summary 89 yo F p/w erythema and tenderness of right lower extremity most concerning for cellulitis
# Cellulitis right lower extremity
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
- with Dermatology, squamous cell carcinoma was removed on 04/30, received stem cells transplants
- was on doxycyline for 2 days, then presented to the ER for worsening erythema
- ED course started on vancomycin, complicated by adverse reaction, now receiving and tolerate levofloxacin 750mg q48h (started 05/02, today is day 3)
- pain control: acetaminophen 650mg q4h; morphine sulfate 2mg and 4mg q4hprn
- Wound care following
- Follow CBC, CMP
- Plan for eventual transition to PO levofloxacin upon discharge for likely 5-7 day total course
# Adverse drug reaction
- another episode of rash/itchiness around neck but no dyspnea
- given x1 diphenhydramine
- unclear if reaction to levofloxacin (last given 05/02, 10pm) or residual vancomycin
- continue levofloxacin for now
# History of Multiple skin malignancies
- Melanoma right mid portillo
- liposarcoma right lower extremity
- has been managing with chemotherapy cream - now completed, per dermatology
# Chronic normocytic anemia
- Hgb 8.5 (down from 9.6 and from 10.5 prior)
- other cell lines (WBC, Plt) did not exhibit a decrease from yesterday to today
- H&H at 14:00
- MCV 88.1
# HTN
- BP was over 140s/80s
- Carvedilol 3.125 mg twice daily
# Chronic issues per below
# HLD: Rosuvastatin 10 mg
# Hypothyroidism - levothyroxine 88mcg
# Depression - Paroxetine 20 mg daily
DVT prophylaxis: enoxaparin
Full code
Disposition: patient wishes to go home and lives with daughter. Daughter will be able to curing pickling packer tomorrow because moving granddaugther into college this weekend. per CM no needs at discharge
Anticipated Discharge: 24 - 48 hours
Subjective/Interval History
-
Date of Service: May 04, 2025
overnight, experienced some itching/rash, better now
was given diphenhydramine x1
levofloxacin was last administered 22:10 on 05/02/2025
otherwise, doing well this morning
Objective Data
-
Labs:
Laboratory Results
05/04/25
06:46
WBC Pending
Hgb Pending
Hct Pending
Plt Count Pending
Sodium Pending
Potassium Pending
Chloride Pending
Carbon Dioxide Pending
BUN Pending
Creatinine Pending
Glucose Pending
Calcium Pending
Total Bilirubin Pending
AST Pending
ALT Pending
Alkaline Phosphatase Pending
WBC 8.2
Hgb 8.5 (from 9.6 from 10.3 prior)
electrolytes within normal limits BUN 29
LFTs within normal limits
Vital Signs:
Vital Signs
Temp Pulse Resp BP Pulse Ox
97.5 F 74 17 144/87 97
05/04/25 03:23 05/04/25 03:23 05/04/25 03:23 05/04/25 03:23 05/04/25 03:23
afebrile
I&O
05/03/25 05/04/25 05/05/25
06:59 06:59 06:59
Intake Total 150 / 150 1380 / 1380
Balance 150 / 150 1380 / 1380
Review of Systems
-
Constitutional: Reports No Symptoms
EENT: Reports No Symptoms Reported
Respiratory: Reports No Symptoms
Cardiac: Reports No Symptoms
Abdomen/GI: Reports No Symptoms
Genitourinary: Reports No Symptoms
Skin: Reports Other (redness, dryness some pain along right lower extremity)
Neuro: Reports No Symptoms
Physical Exam
-
General: No Apparent Distress
HEENT: Normocephalic and Atraumatic
Respiratory: Clear to Auscultation
Cardiac: Regular Rhythm
GI: Soft
Musculoskeletal: No Edema
Skin: Other (right lower extremity is wrapped in bandage, some warmth appreciable, but erythema is not appearing to extend beyond marked lines. able to move toes/sensation grossly intact)
Neuro: Awake, Alert and Nonfocal/Grossly Intact
Psych: Calm
[2025-05-04 07:55] VITALS: BP 165/68
[2025-05-04 07:58] LABS: Hematocrit 25.6 % (37.0-47.0); Hemoglobin 8.5 g/dL (12.0-16.0); Mean Corp Hgb Conc. 33.2 g/dL (33.0-37.0); Mean Corpuscular Volume 90.1 fL (81.0-99.0); Nucleated Red Blood Cells % 0 %; Platelet Count 252 10^3/uL (130-400); Red Cell Dist. Width 13.6 % (11.5-14.5)
[2025-05-04] MEDS: HEPARIN 5000 UNITS SC ×2 (08:22→21:30)
[2025-05-04] MEDS: CRESTOR 10 MG PO (08:22)
[2025-05-04] MEDS: PAXIL 20 MG PO (08:22)
[2025-05-04] MEDS: HYDROPHOR 1 APPLIC TOPICAL (08:23)
[2025-05-04 08:26] LABS: ALT (SGPT) 17 U/L (0-35); AST (SGOT) 19 U/L (14-36); Albumin 3.5 g/dl (3.5-5.0); Alkaline Phosphatase 55 U/L (38-126); Blood Urea Nitrogen 29 mg/dl (7-17); Calcium 9.0 mg/dl (8.4-10.2); Carbon Dioxide 24 mmol/L (22-30); Chloride 108 mmol/L (98-107); Estimated Creatinine Clearance 39 ml/min; Glucose 113 mg/dl (70-99); Potassium 4.5 mmol/L (3.5-5.1); Sodium 139 mmol/L (135-145); Total Protein 6.2 g/dl (6.3-8.2); eGFR > 60.00
[2025-05-04] MEDS: COREG 3.125 MG PO ×2 (08:34→21:30)
[2025-05-04 10:49] VITALS: BP 151/53
[2025-05-04 13:57] LABS: Hematocrit 26.9 % (37.0-47.0); Hemoglobin 9.2 g/dL (12.0-16.0)
[2025-05-04] MEDS: FLUSH (NSS) 2 FLUSH IV (14:23)
[2025-05-04 15:55] VITALS: BP 158/60
[2025-05-04 19:40] VITALS: BP 170/60
[2025-05-04 23:21] VITALS: BP 153/55
[2025-05-04] MEDS: LEVAQUIN 150 IV (23:39)
[2025-05-05] MEDS: TYLENOL 650 MG PO ×3 (01:28→11:39)
[2025-05-05 03:20] VITALS: BP 155/46
[2025-05-05] MEDS: TYLENOL PO (04:06)
[2025-05-05] MEDS: SYNTHROID 88 MCG PO (06:26)
[2025-05-05 07:00] VITALS: BP 152/62
--- NOTE | 2025-05-05 07:19 | W.PN.HOSP.TC ---
Today's Communication/Plan
-
likely discharge today
Assessment / Plan
Assessment / Plan
In summary 89 yo F p/w erythema and tenderness of right lower extremity most concerning for cellulitis
# Cellulitis right lower extremity
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
- with Dermatology, squamous cell carcinoma was removed on 04/30, received stem cells transplants
- was on doxycyline for 2 days, then presented to the ER for worsening erythema
- ED course started on vancomycin, complicated by adverse reaction, now receiving and tolerate levofloxacin 750mg q48h (started 05/02, today is day 4; dose #2)
- pain control: acetaminophen 650mg q4h; switch to PO oxycodone in preparation for discharge
- Likely discharge today
- continue PO levofloxacin 750mg q48h (3 more doses, or 6 more days).
# Adverse drug reaction
- appears to have resovled, unclear etiology
- continue levofloxacin, transition to PO upon discharge
- summer counselor anticpiatory guidance should she experience itchiness/rash/dyspnea
# History of Multiple skin malignancies
- Melanoma right mid portillo
- liposarcoma right lower extremity
- has been managing with chemotherapy cream - now completed, per dermatology
# Chronic normocytic anemia
- Hgb 8.5 (down from 9.6 and from 10.5 prior)
- other cell lines (WBC, Plt) did not exhibit a decrease from yesterday to today
- H&H at 14:00
- MCV 88.1
# HTN
- BP was over 140s/80s
- Carvedilol 3.125 mg twice daily
# Chronic issues per below
# HLD: Rosuvastatin 10 mg
# Hypothyroidism - levothyroxine 88mcg
# Depression - Paroxetine 20 mg daily
DVT prophylaxis: enoxaparin
Full code
Disposition: patient wishes to go home and lives with daughter. Daughter will be able to burr picker tomorrow because moving granddaugther into college this weekend. per CM no needs at discharge
Anticipated Discharge: Within 24 hours
Subjective/Interval History
-
Date of Service: May 05, 2025
feels well, no new itchiness, rash, shortness of breath
received levaquin dose around midnight (second dose)
Objective Data
-
Labs:
Laboratory Results
05/05/25
06:00
WBC Pending
Hgb Pending
Hct Pending
Plt Count Pending
Sodium Pending
Potassium Pending
Chloride Pending
Carbon Dioxide Pending
BUN Pending
Creatinine Pending
Glucose Pending
Calcium Pending
Total Bilirubin Pending
AST Pending
ALT Pending
Alkaline Phosphatase Pending
Vital Signs:
Vital Signs
Temp Pulse Resp BP Pulse Ox
98.0 F 66 16 155/46 98
05/05/25 03:20 05/05/25 03:20 05/05/25 03:20 05/05/25 03:20 05/05/25 03:20
I&O
05/04/25 05/05/25 05/06/25
06:59 06:59 06:59
Intake Total 1380 / 1380 720 / 720
Balance 1380 / 1380 720 / 720
Review of Systems
-
Constitutional: Reports No Symptoms
EENT: Reports No Symptoms Reported
Respiratory: Reports No Symptoms
Cardiac: Reports No Symptoms
Abdomen/GI: Reports No Symptoms
Genitourinary: Reports No Symptoms
Skin: Reports Other (redness, dryness some pain along right lower extremity)
Neuro: Reports No Symptoms
Physical Exam
-
General: No Apparent Distress
HEENT: Normocephalic and Atraumatic
Respiratory: Clear to Auscultation
Cardiac: Regular Rhythm
GI: Soft
Musculoskeletal: No Edema
Skin: Other (right lower extremity is wrapped in bandage, some warmth appreciable, but erythema is not appearing to extend beyond marked lines. able to move toes/sensation grossly intact)
Neuro: Awake, Alert and Nonfocal/Grossly Intact
Psych: Calm
[2025-05-05 07:52] LABS: Hematocrit 26.0 % (37.0-47.0); Hemoglobin 8.6 g/dL (12.0-16.0); Mean Corp Hgb Conc. 33.1 g/dL (33.0-37.0); Mean Corpuscular Volume 90.6 fL (81.0-99.0); Nucleated Red Blood Cells % 0 %; Platelet Count 245 10^3/uL (130-400); Red Cell Dist. Width 13.7 % (11.5-14.5)
[2025-05-05 08:11] LABS: ALT (SGPT) 18 U/L (0-35); AST (SGOT) 20 U/L (14-36); Albumin 3.4 g/dl (3.5-5.0); Alkaline Phosphatase 54 U/L (38-126); Blood Urea Nitrogen 26 mg/dl (7-17); Calcium 9.0 mg/dl (8.4-10.2); Carbon Dioxide 26 mmol/L (22-30); Chloride 109 mmol/L (98-107); Estimated Creatinine Clearance 39 ml/min; Glucose 91 mg/dl (70-99); Potassium 4.6 mmol/L (3.5-5.1); Sodium 138 mmol/L (135-145); Total Protein 6.0 g/dl (6.3-8.2); eGFR > 60.00
[2025-05-05] MEDS: PAXIL 20 MG PO (08:14)
[2025-05-05] MEDS: CRESTOR 10 MG PO (08:14)
[2025-05-05] MEDS: HEPARIN 5000 UNITS SC (08:14)
[2025-05-05] MEDS: COREG 3.125 MG PO (08:14)
[2025-05-05] MEDS: HYDROPHOR 1 APPLIC TOPICAL (08:17)
[2025-05-05 11:00] VITALS: BP 159/62
[2025-05-05] MEDS: ROXICODONE 5 MG PO (11:38)
--- NOTE | 2025-05-05 13:14 | W.DCSUMMARY ---
Documented by User: Clyde Robertson MD, Resident 05/05/25 13:29
Discharge Summary
Discharge Data
Date of Admission: 05/02/25
Date of Discharge: 05/05/25
-
Pending Results: No
Hospital Course
Discharging Physician : Stewart Barajas, Clyde Robertson
Disposition : Home
Primary care physician : Chantal Sr
Principal Discharge diagnosis : Cellulitis of right leg
Chronic Discharge diagnosis : squamous cell carcinoma, liposarcoma, melanoma of R lower extremity, HTN, HLD, hypothyroidism, normocytic anemia
Hospital Course :
89 yo F p/w erythema, pain from knee to foot of right lower extremity. She was recently at Dermatology clinic to manage a wound related to squamous cell carcinoma removal on 04/30. However, a few days later, she felt redness and pain of right lower
extremity concerning for cellulitis.
The following problems were addressed during this admission.
# Cellulitis right lower extremity
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
- received doxycyline for 2 days outpatient, then presented to the ER for worsening erythema
- ED course started on vancomycin, complicated by adverse reaction
- switched to and tolerated levofloxacin 750mg q48h, received 2 doses (05/02, and 05/04)
- pain control is with oxycodone 5mg q8h prn, for 1 week duration
- Plan for levofloxacin 750mg PO, 3 more doses to be taken 05/06, 05/08, 05/10 evenings (total of 10 day course, 5 doses; complete on 05/10/2025)
- patient has been advised tof ollow-up with Dr. Tubbs, dermatology, and her PCP within 1 week.
# Adverse drug reaction - vancomycin infusion reaction
- Initially recevied vancomycin in the ED and developed itching, rash that required diphenhydramine x2, and dexamethasone.
- vancomycin was discontinued
- patient was started on levofloxacin 750mg IV q48h and will transition to PO upon discharge as above.
# History of Multiple skin malignancies
- Melanoma right mid portillo
- liposarcoma right lower extremity
- has been managing with chemotherapy cream - now completed, per dermatology
- Patient has been asked to follow-up with Dr. Tubbs, dermatology
# Chronic normocytic anemia
- Hgb stable at 8.6 on day of discharge
- MCV 88.1
# Chronic issues per below
HTN- Carvedilol 3.125 mg twice daily
HLD: Rosuvastatin 10 mg
Hypothyroidism - levothyroxine 88mcg
Depression - Paroxetine 20 mg daily
Procedure findings :
EKG 05/03/2025
Vent. Rate : 67 BPM Atrial Rate : 67 BPM
P-R Int : 182 ms QRS Dur : 78 ms
QT Int : 424 ms P-R-T Axes : 55 11 32 degrees
QTcB Int : 448 ms
NORMAL SINUS RHYTHM
NORMAL ECG
Discharge Plan
-
Patient Disposition: Home (Routine Discharge)
Discharge Diagnosis/Procedures: cellulitis of right leg
Condition: Fair
Diet: Regular
Activity: As tolerated
Driving Restrictions: As prior to admission
Bathing Restrictions: None
Activity Restrictions/Additional Instructions:
Wound Care Instructions
Resume prior local care to E as instructed by Dr. Tubbs.
Elevate heels off bed with pillow.
Pressure redistributing chair cushion (i.e. air chair cushion) as needed.
Follow up with stabilizer operator Dr. Tubbs.
Referrals:
Chantal Sr MD [Family Provider, [facility]] - in less than 1 week
Additional Discharge Medication Instructions: Please take levofloxacin 750mg 1 pill by mouth every 48 hours starting from Tuesday, 05/06 evening. You have been prescribed 3 doses, so you will take 1 pill on Tuesday (05/06) evening, Tuesday (05/08)
evening, and Tuesday (05/10) evening.
You should STOP taking doxycycline
You may continue your other home medications as below
You are also being prescribed oxycodone 5mg as needed to take every 8 hours for pain.
Please follow-up with Dr. Tubbs from dermatology and with your family doctor within 1 week.
You have been provided wound care instructions above. The name of the medication to which you experienced an adverse reaction is vancomycin.
Prescriptions:
New
levofloxacin 750 mg tablet
750 mg PO Q48H Qty: 3 0RF
oxycodone 5 mg tablet
5 mg PO Q8H PRN (Reason: Pain) 5 Days Qty: 15 0RF
Continued
Systane (PF) 0.4-0.3 % Dropperette
1 drp BOTH EYES BIDPRN PRN (Reason: dry eyes)
acetaminophen [Tylenol] 325 mg Tablet
650 mg PO Q6HPRN PRN (Reason: mild pain)
carvedilol [Coreg] 3.125 mg Tablet
3.125 mg PO BID
levothyroxine [Synthroid] 88 mcg Tablet
88 mcg PO DAILY
paroxetine HCl [Paxil] 20 mg Tablet
20 mg PO DAILY
rosuvastatin [Crestor] 10 mg Tablet
10 mg PO DAILY
Discontinued
doxycycline hyclate 100 mg Capsule
100 mg PO BID
Rx Instructions:
for 10 days starting 04/30/25
Discharge Orders:
Discharge Patient (As Directed); Ordered 05/05/25
Ordered By: Clyde Robertson
Discharge Date and Time
Discharge Date/Time: 05/05/25 15:32
Print Language: SWEDISH

Documented by User: Stewart Barajas DO 05/05/25 16:23
Discharge Summary
Discharge Data
Date of Admission: 05/02/25
Date of Discharge: 05/05/25
Total time spent discharging patient (in min): 32
Discharge Plan
-
Patient Disposition: Home (Routine Discharge)
Discharge Diagnosis/Procedures: cellulitis of right leg
Condition: Fair
Diet: Regular
Activity: As tolerated
Driving Restrictions: As prior to admission
Bathing Restrictions: None
Activity Restrictions/Additional Instructions:
Wound Care Instructions
Resume prior local care to RLE as instructed by Dr. Tubbs.
Elevate heels off bed with pillow.
Pressure redistributing chair cushion (i.e. air chair cushion) as needed.
Follow up with stabilizer operator Dr. Tubbs.
Referrals:
Chantal Sr MD [Family Provider, [facility]] - in less than 1 week
Additional Discharge Medication Instructions: Please take levofloxacin 750mg 1 pill by mouth every 48 hours starting from Tuesday, 05/06 evening. You have been prescribed 3 doses, so you will take 1 pill on Tuesday (05/06) evening, Tuesday (05/08)
evening, and Tuesday (05/10) evening.
You should STOP taking doxycycline
You may continue your other home medications as below
You are also being prescribed oxycodone 5mg as needed to take every 8 hours for pain.
Please follow-up with Dr. Tubbs from dermatology and with your family doctor within 1 week.
You have been provided wound care instructions above. The name of the medication to which you experienced an adverse reaction is vancomycin.
Prescriptions:
New
levofloxacin 750 mg tablet
750 mg PO Q48H Qty: 3 0RF
oxycodone 5 mg tablet
5 mg PO Q8H PRN (Reason: Pain) 5 Days Qty: 15 0RF
Continued
Systane (PF) 0.4-0.3 % Dropperette
1 drp BOTH EYES BIDPRN PRN (Reason: dry eyes)
acetaminophen [Tylenol] 325 mg Tablet
650 mg PO Q6HPRN PRN (Reason: mild pain)
carvedilol [Coreg] 3.125 mg Tablet
3.125 mg PO BID
levothyroxine [Synthroid] 88 mcg Tablet
88 mcg PO DAILY
paroxetine HCl [Paxil] 20 mg Tablet
20 mg PO DAILY
rosuvastatin [Crestor] 10 mg Tablet
10 mg PO DAILY
Discontinued
doxycycline hyclate 100 mg Capsule
100 mg PO BID
Rx Instructions:
for 10 days starting 04/30/25
Discharge Orders:
Discharge Patient (As Directed); Ordered 05/05/25
Ordered By: Clyde Robertson
Discharge Date and Time
Discharge Date/Time: 05/05/25 15:32
Print Language: SWEDISH
--- NOTE | 2025-05-05 14:58 | CM ---
Patient discharge today
no needs
PLAN: Home, no needs
daughter to transport
== END 2025-05-05 15:32 | disposition home or self-care (01) | DRG 603 ==
LOC: 3 WEST ACU 17:52
PROVIDERS: Clinical Nurse Specialist Family Health; Nurse Practitioner; ADMITTING PHYSICIAN Hospitalist; ATTENDING PHYSICIAN Internal Medicine; EMERGENCY PHYSICIAN Emergency Medicine; FAMILY PHYSICIAN Family Medicine
PROC: 5A09357 Assistance with Respiratory Ventilation, Less than 24 Consecutive Hours, Continuous Positive Airway Pressure (ICD-10-PCS; 2025-05-04)
DX: L03.115 Cellulitis of right lower limb (principal); Z94.84 Stem cells transplant status; C44.722 Squamous cell carcinoma of skin of right lower limb, including hip; E03.9 Hypothyroidism, unspecified; D64.9 Anemia, unspecified; E78.00 Pure hypercholesterolemia, unspecified; I10 Essential (primary) hypertension; F32.A Depression, unspecified; L27.0 Generalized skin eruption due to drugs and medicaments taken internally; T36.8X5A Adverse effect of other systemic antibiotics, initial encounter; Y92.230 Patient room in hospital as the place of occurrence of the external cause; Z92.21 Personal history of antineoplastic chemotherapy; Z79.890 Hormone replacement therapy; Z79.621 Long term (current) use of calcineurin inhibitor; Z85.820 Personal history of malignant melanoma of skin; Z11.52 Encounter for screening for COVID-19
CPT/HCPCS: 80053; 83605; 85014; 85018; 85025; 87040; 87811; 93005; 94640; 96365; 96366; 96375; 97116; 97162; 99284

== ENCOUNTER → 2025-05-08 10:05 | Outpatient (REF) | payer MEDICARE, OTHER, SELFPAY ==
[2025-05-08 11:41] LABS: Hematocrit 31.4 % (37.0-47.0); Hemoglobin 10.2 g/dL (12.0-16.0); Mean Corp Hgb Conc. 32.5 g/dL (33.0-37.0); Mean Corpuscular Volume 91.5 fL (81.0-99.0); Nucleated Red Blood Cells % 0 %; Platelet Count 338 10^3/uL (130-400); Red Cell Dist. Width 13.9 % (11.5-14.5)
== END ==
LOC: REG 10:05
PROVIDERS: ATTENDING PHYSICIAN Nurse Practitioner Adult Health; FAMILY PHYSICIAN Family Medicine
DX: L03.115 Cellulitis of right lower limb (principal); D64.9 Anemia, unspecified
CPT/HCPCS: 36415; 85025